=== PATIENT | female | born 1955 | race Caucasian/White ===

== ENCOUNTER → 2018-08-23 12:28 | Outpatient (CLI) | payer MEDICARE, SELFPAY ==
--- NOTE | 2018-08-23 12:37 | US_ITS ---
US breast LT complete MM Dig mamm DX unilat LT CAD Left breast ultrasound INDICATION: Palpable nodule left breast ORDERING PHYSICIAN: James Castro PATIENT AGE: 63 years COMPARISON: None The previous exams have been sent for but were not yet available for comparison TECHNIQUE: Standard images of the left breast along with spot compression views and left breast ultrasound FINDINGS: There is average fibroglandular tissue. In the region of the palpable abnormality there is a small area of increased density with a central lucency. Central lucency measures approximately 3 mm. No other significant anomalies are evident. Left breast ultrasound: There is a 1.6 x 0.7 x 1.6 cm area of subcutaneous slight increase echogenicity in the 12:00 region of the left breast. This contains a central area of sonolucency which measures 4 mm. This has benign features and may represent a lipoma with cystic degeneration centrally IMPRESSION: Palpable abnormality of the left breast is represented by an area of slight increased echogenicity with central sonolucency and may represent a lipoma with central cystic degeneration. Hamartoma is also a consideration. Probably benign. BI-RADS Category: 3 Probably Benign Finding Short Term Follow-up Recommendations: 1. Obtain old mammograms for comparison. An addendum may be a issued once the old films are available 2. 6 month mammographic and sonographic follow-up. 3. If the lesion increases in size then, ultrasound-guided biopsy could be performed (A letter has been sent to the patient regarding results of the study.)
--- NOTE | 2018-08-23 13:35 | MM_ITS ---
MM Dig mamm DX unilat LT CAD Left breast ultrasound INDICATION: Palpable nodule left breast ORDERING PHYSICIAN: James Castro PATIENT AGE: 63 years COMPARISON: None The previous exams have been sent for but were not yet available for comparison TECHNIQUE: Standard images of the left breast along with spot compression views and left breast ultrasound FINDINGS: There is average fibroglandular tissue. In the region of the palpable abnormality there is a small area of increased density with a central lucency. Central lucency measures approximately 3 mm. No other significant anomalies are evident. Left breast ultrasound: There is a 1.6 x 0.7 x 1.6 cm area of subcutaneous slight increase echogenicity in the 12:00 region of the left breast. This contains a central area of sonolucent C which measures 4 mm. This has benign features and may represent a lipoma with cystic degeneration centrally IMPRESSION: Palpable abnormality of the left breast is represented by an area of slight increased echogenicity with central sonolucent C and may represent a lipoma with central cystic degeneration. Probably benign. BI-RADS Category: 3 Probably Benign Finding Short Term Follow-up Recommendations: 1. Obtain old mammograms for comparison. An addendum may be a issued once the old films are available 2. 6 month mammographic and sonographic follow-up. 3. If the lesion increases in size than, ultrasound-guided biopsy could be performed (A letter has been sent to the patient regarding results of the study.)
== END ==
PROVIDERS: PCP Internal Medicine; Visit Provider Internal Medicine
DX: N63.20 Unspecified lump in the left breast, unspecified quadrant (principal); D24.2 Benign neoplasm of left breast
CPT/HCPCS: 76641; 77065

== ENCOUNTER → 2019-04-10 12:43 | Outpatient (CLI) | payer MEDICARE, SELFPAY ==
--- NOTE | 2019-04-10 12:43 | US_ITS ---
PROCEDURE: MM DIG MAMM BI DX W/CAD CLINICAL INDICATION: ARIE mamm--6 mo fu COMPARISON: MY Digital Screen BILAT from 04/06/2016 MY Digital Screen BILAT from 04/06/2017 MY Digital Screen BILAT from 04/07/2018 DIG MAMM-DX UNI-LT from 08/23/2018 BREASTLT US breast LT complete from 08/23/2018 US BREAST LT COMPLETE from 04/10/2019 TECHNIQUE: Standard CC and MLO images and 3D Tomosynthesis was obtained. R2 CAD reviewed. FINDINGS: Mostly fatty replaced fibroglandular tissue. There is some parenchymal distortion in the upper outer right breast from previous biopsy with some benign-appearing calcification at this region. Surgical clips are present in the right axilla. No malignant appearing mass or malignant-appearing microcalcification is evident. Left breast ultrasound: Previously noted complex nodule 12 o'clock no longer apparent. No cystic or solid lesion demonstrated IMPRESSION: BI-RAD Category: 2 Benign Finding(s) FOLLOW-UP: 1YR 1 Year Follow-up (A letter has been sent to the patient regarding results of the study.) Dictated by: Manohar Petit MD 04/18/2019 08:36 Electronically signed by Manohar Petit MD in [place] 04/18/2019 08:36
== END ==
PROVIDERS: PCP Internal Medicine; Visit Provider Surgery
DX: N60.02 Solitary cyst of left breast (principal)
CPT/HCPCS: 76641; 77062; 77066; G0279

== ENCOUNTER → 2020-04-12 08:44 | Outpatient (CLI) | payer MEDICARE, SELFPAY ==
--- NOTE | 2020-04-12 08:49 | MM_ITS ---
PROCEDURE: MM DIG SCREENING MAMM BI W/CAD Digital Breast Tomosynthesis Included CLINICAL INDICATION: SCREENING There is a history of breast cancer in the patient's maternal and paternal cousins. There has been a previous lumpectomy right breast for malignancy with follow-up chemotherapy 1998. COMPARISON: MG MY Digital Screen BILAT from 04/07/2018 MG DIG MAMM-DX UNI-LT from 08/23/2018 MG MM DIG MAMM BI DX W/CAD from 04/10/2019 TECHNIQUE: Standard CC and MLO images and 3D Tomosynthesis was obtained. R2 CAD reviewed. FINDINGS: The breasts are composed primarily of fat with minimal scattered fibroglandular densities in each breast. There is minimal postlumpectomy scarring near the axillary tail right breast. There are couple of surgical clips right axilla. There is a mole marker right breast. There is a benign-appearing calcification left breast. There is no new or suspicious lesion in either breast and no suspicious microcalcifications. IMPRESSION: Fatty type breast parenchyma with no suspicious lesions seen BI-RAD Category: 2 Benign Finding(s) FOLLOW-UP: 1YR 1 Year Follow-up (A letter has been sent to the patient regarding results of the study.) Dictated by: Dr. Sharad Salas MD 04/15/2020 11:38 Dr. Sharad Salas MD in [place] 04/15/2020 11:38
== END ==
PROVIDERS: PCP Internal Medicine; Visit Provider Surgery
DX: Z12.31 Encounter for screening mammogram for malignant neoplasm of breast (principal)
CPT/HCPCS: 77063; 77067

== ENCOUNTER 2020-07-24 13:49 | Inpatient (IN) | payer MEDICARE, SELFPAY ==
[2020-07-24] VITALS (12 sets, daily range): BP systolic 101–126; BP diastolic 44–71; PULSE 81–108; RESP 18–22; TEMP 36.9–38.1; O2SAT 86–95; BMI 37.6; BMI 33.3; BMI 32.2
--- NOTE | 2020-07-24 14:15 | PC.NURSE ---
PATIENT SENT TO ER PER El DURAN APRN. REPORT GIVEN TO Dhiraj CARTER RN
[2020-07-24 14:23] LABS: UTC Influenza A Antigen Negative (Negative); UTC Influenza B Antigen Negative (Negative)
--- NOTE | 2020-07-24 14:36 | XR_ITS ---
PROCEDURE: XR CHEST 2V CLINICAL HISTORY: cough Cough and fever with generalized weakness COMPARISON: No exams were available for comparison FINDINGS: The cardiomediastinal silhouette and pulmonary vascularity are within normal limits. There are low lung volumes. Patchy density is present in the left lower lobe and right middle lobe consistent with bilateral pneumonia. Patchy infiltrate is also suspected in the left upper lobe. No obvious effusion. Surgical clips are present in the right axilla. There is mild midthoracic curvature convex right. IMPRESSION: Bilateral pneumonia Dictated by: Manohar Petit MD 07/24/2020 14:58 Manohar Petit MD in [place] 07/24/2020 14:58
--- NOTE | 2020-07-24 14:44 | HMH.EDGENADL ---
ED Disposition Clinical Impression: Pneumonia due to COVID-19 virus Respiratory failure with hypoxia Qualifiers: Chronicity: acute Qualified Code(s): J96.01 - Acute respiratory failure with hypoxia Disposition: Admitted As Inpatient Condition on Discharge: Fair Referrals: James Castro [Primary Care Provider] - - Critical Care Critical Care Time: No Attestation: On 07/24/20, the high probability of a clinically significant, sudden or life threatening deterioration of the following system(s) required my full and direct attention, intervention and personal management. The time I documented below is in addition to time spent performing reported procedures but includes the following listed in this critical care notation. Medical Decision Making - Casimiro Inquiry Pt receiving controlled substance: No Vital Signs: 07/24/20 13:50 07/24/20 14:25 07/24/20 14:26 Temperature 100.6 F H 100.5 F H Temperature Source Oral Oral Pulse Rate [Right Brachial] 108 H 95 H Respiratory Rate 22 18 Blood Pressure [Right Arm] 103/61 L 110/44 L Blood Pressure Mean [Right Arm] 75 66 Blood Pressure Source [Right Arm] Automatic Cuff Automatic Cuff Blood Pressure Position [Right Arm] Sitting Sitting 02 Sat by Pulse Oximetry 86 L 88 L 91 L Oxygen Delivery Method Room Air Room Air Nasal Cannula Oxygen Flow Rate (LPM) 5 07/24/20 15:24 07/24/20 15:30 07/24/20 16:26 Temperature Temperature Source Pulse Rate [Right Brachial] 95 H 100 H 94 H Respiratory Rate 18 18 18 Blood Pressure [Right Arm] 120/61 106/52 L 101/61 L Blood Pressure Mean [Right Arm] 80 70 74 Blood Pressure Source [Right Arm] Blood Pressure Position [Right Arm] 02 Sat by Pulse Oximetry 94 L 91 L 92 L Oxygen Delivery Method Oxygen Flow Rate (LPM) - Lab Data Lab Results 07/24/20 14:05: Influenza Type A Ag Negative, Influenza Type B Ag Negative 07/24/20 14:33: WBC 9.9, RBC 4.32, Hgb 13.1, Hct 39.1, MCV 90.4, MCH 30.3, MCHC 33.5, RDW 12.4, Plt Count 299, MPV 7.2 L, Neut % (Auto) 86.4 H, Lymph % (Auto) 9.7 L, [place] % (Auto) 3.7, Eos % (Auto) 0.1, Baso % (Auto) 0.2, Neut # (Auto) 8.6 H, Lymph # (Auto) 1.0, [place] # (Auto) 0.4, Eos # (Auto) 0.0, Baso # (Auto) 0.0, Total Counted 100, Neutrophils % (Manual) 91 H, Lymphocytes % (Manual) 9 L, Platelet Estimate Normal, RBC Morphology Normal 07/24/20 14:33: Sodium 138, Potassium 4.3, Chloride 103, Carbon Dioxide 24, Anion Gap 15.3 H, BUN 28 H, Creatinine 1.20 H, Estimated Creat Clear 65, Estimated GFR 45 L, Est GFR ( Amer) 54 L, Glucose 117 H, Calcium 9.1, Total Bilirubin 0.6, AST 38 H, ALT 21, Alkaline Phosphatase 87, Troponin I < 0.01, Total Protein 8.3 H, Albumin 4.3, Globulin 4.0 H, Albumin/Globulin Ratio 1.1 07/24/20 14:33: Lactate 1.0 07/24/20 18:05: Troponin I < 0.01 Result diagrams: 07/24/20 14:33 07/24/20 14:33 Orders (Tests/Meds): ED MEDICATIONS Generic Name Dose Route Start Last Admin Trade Name Freq PRN Reason Stop Dose Admin Ceftriaxone Sodium 1 gm/ 50 mls @ 100 mls/hr 07/24/20 15:30 07/24/20 15:45 Sodium Chloride IV 08/07/20 15:29 100 mls/hr Q24H ELLIE Administration Protocol Azithromycin 500 mg/ Sodium 250 mls @ 250 mls/hr 07/24/20 15:30 07/24/20 15:45 Chloride IV 08/07/20 15:29 250 mls/hr Q24H ELLIE Administration Protocol Discontinued Medications Generic Name Dose Route Start Last Admin Trade Name Freq PRN Reason Stop Dose Admin Albuterol Sulfate 2 puffs 07/24/20 14:38 07/24/20 14:40 Albuterol-Hfa 90mcg/Puff Inhaler 8gm IH 07/24/20 14:39 2 puffs ONCE ONE Administration Miscellaneous 1 unit 07/24/20 14:37 07/24/20 15:38 Aerochamber/Optihaler MC 07/24/20 14:38 Not Given ONCE ONE ORDERS Category Date Time Status Troponin I Q3H Lab 07/24/20 20:45 Ordered Blood Culture Stat Micro 07/24/20 14:33 Received - Radiology Data #1 Image(s): Chest Image Reviewed: Yes I reviewed the patient's radiology imag
[2020-07-24 14:51] LABS: Basophils % 0.2 % (0.1-2.0); Eosinophils % 0.1 % (0.1-12.0); Hematocrit 39.1 % (37.0-47.0); Hemoglobin 13.1 g/dL (12.2-16.2); Lymphocytes % 9.7 % (10-50); Mean Corpuscular HGB Conc 33.5 g/dL (31.8-35.4); Mean Corpuscular Hemoglobin 30.3 pg (27.0-31.2); Mean Corpuscular Volume 90.4 fl (81-99); Mean Platelet Volume 7.2 fl (7.4-10.4); Monocytes # 0.4 K/mm3 (0.1-1.0); Monocytes % 3.7 % (1.7-9.3); Neutrophils # 8.6 K/mm3 (1.8-7.8); Neutrophils % 86.4 % (37.0-80.0); Platelet Count 299 K/mm3 (142-424); Red Blood Count 4.32 M/mm3 (4.20-5.40); Red Cell Distribution Width 12.4 % (11.5-17.5); White Blood Count 9.9 K/mm3 (4.8-10.8)
[2020-07-24 14:53] LABS: MANUAL DIFFERENTIAL MANUAL DIFFERENTIAL (MANUAL DIFF)
[2020-07-24 14:57] LABS: Chloride 103 mmol/L (98-107); Sodium 138 mmol/L (136-145)
[2020-07-24 14:58] LABS: Potassium 4.3 mmoL/L (3.5-5.1)
[2020-07-24 15:00] LABS: Alanine Aminotransferase 21 U/L (12-78); Alkaline Phosphatase 87 U/L (38-126); Aspartate Amino Transferase 38 U/L (14-36); Bilirubin,Total 0.6 mg/dl (0.2-1.3); Blood Urea Nitrogen 28 mg/dl (7-17); Creatinine Clearance Estimated 65 mL/min (50-200); Estimated Glomerular Filt Rate 45 ml/min (>60); GFR (African American) 54 ML/MIN (>60)
[2020-07-24 15:01] LABS: Albumin Level 4.3 g/dl (3.5-5.0); Albumin/Globulin Ratio 1.1 (1.1-1.8); Anion Gap 15.3 mEq/L (5-15); Calcium 9.1 mg/dl (8.4-10.2); Carbon Dioxide 24 mmol/L (22.0-30.0); Glucose 117 mg/dl (74-100); Total Protein,Serum 8.3 g/dl (6.3-8.2)
[2020-07-24 15:11] LABS: Lymphocytes % 9 % (10-50); Neutrophils % 91 % (42-76); RBC Morphology Normal; Total Cells Counted 100
[2020-07-24 15:12] LABS: Platelet Estimate Normal
[2020-07-24 15:14] LABS: Troponin I < 0.01 ng/ml (0.00-0.034)
--- NOTE | 2020-07-24 15:20 | ECG_ITS ---
APPROVED REPORT Exam: Resting ECG HR:95 bpm ECG Measurements Heart Rate 95 AXES DE 148 P 7 QRSd 82 QRS -15 QT 346 T 46 QTc 434 Conclusion Normal sinus rhythm Inferior and anterior changes are old findings Abnormal ECG Electronically signed by : Davi Guzman, 07/27/2020 11:05:11
--- NOTE | 2020-07-24 17:30 | PC.NURSE ---
Addendum entered by Chantelle Tolentino RN 07/24/20 18:21: They are putting the swab on the run now. MD aware Original Note: CAlled to check on the status of pt covid results due to this will let the MD know where to go for admission. Per lab pt covid swab had not been put on the machine to run at this time.
[2020-07-24 19:00] LABS: Troponin I < 0.01 ng/ml (0.00-0.034)
--- NOTE | 2020-07-24 19:53 | PC.NURSE ---
Dr. Venegas s/w Dr. Pang
--- NOTE | 2020-07-24 19:53 | PC.NURSE ---
MD Theo speaking with MD Bird at this time
--- NOTE | 2020-07-24 19:54 | PC.NURSE ---
lab called giving covid test results-positive. RN notified.
[2020-07-24 20:17] LABS: Adenovirus,PCR Not Detected (NotDetected); Bordetella Pertussis Not Detected (NotDetected); Chlamydophila Pneumoniae, PCR Not Detected (NotDetected); Coronavirus 19, PCR Not Detected (NotDetected); Coronavirus 229E Not Detected (NotDetected); Coronavirus NL63 Not Detected (NotDetected); Coronavirus OC43 Not Detected (NotDetected); Coronovirus HKU1,PCR Not Detected (NotDetected); Human Metapneumovirus Not Detected (NotDetected); Influenza A, PCR Not Detected (NotDetected); Influenza AH1, 2009 Not Detected (NotDetected); Influenza AH1, PCR Not Detected (NotDetected); Influenza AH3,PCR Not Detected (NotDetected); Influenza B, PCR Not Detected (NotDetected); Mycoplasma Pneumoniae, PCR Not Detected (NotDetected); Parainfluenza 1, PCR Not Detected (NotDetected); Parainfluenza 2, PCR Not Detected (NotDetected); Parainfluenza 3, PCR Not Detected (NotDetected); Parainfluenza 4, PCR Not Detected (NotDetected); Respiratory Syncytial Virus Not Detected (NotDetected); Rhinovirus/Enterovirus Not Detected (NotDetected)
[2020-07-24 20:56] LABS: Coronavirus 19 IgG Antibody Positive (Negative); Coronavirus 19 IgM Antibody Negative (Negative)
[2020-07-24 21:03] LABS: Troponin I < 0.01 ng/ml (0.00-0.034)
--- NOTE | 2020-07-24 21:16 | PC.NURSE ---
PT ARRIVED TO FLOOR VIA W/C FROM ED W/STAFF AT 2116
--- NOTE | 2020-07-24 22:01 | HMH.ACPN2 ---
Internal Medicine - PN: Subj *Date: 07/24/20 *Time: 22:01 Interval history: 65 y.o. female admitted with pneumonia. She had COVID 19 Vaccine by [facility] one month ago. In the ER her rapid PCR was positive. I requested a PCR respiratory panel plus an IgG/IgM. THE PCR FOR CORONAVIRUS/SARS 2 IS NEGATIVE and THE IgM IS NEGATIVE INDICATING NO ACUTE INFECTION AND THE IgG IS POSITIVE INDICATING IMMUNITY TO COVID 19 (conferred by vaccine). She has been continued on antibiotics. Remdesevir is NOT INDICATED. Nor is COVID protocol. Exam Vital signs and Labs for Last 24 Hours: Temp Pulse Resp BP Pulse Ox 98.5 F 88 22 126/71 94 L 07/24/20 21:07 07/24/20 21:07 07/24/20 21:07 07/24/20 21:07 07/24/20 20:30 Laboratory Results - last 24 hr 07/24/20 14:05: Influenza Type A Ag Negative, Influenza Type B Ag Negative 07/24/20 14:33: WBC 9.9, RBC 4.32, Hgb 13.1, Hct 39.1, MCV 90.4, MCH 30.3, MCHC 33.5, RDW 12.4, Plt Count 299, MPV 7.2 L, Neut % (Auto) 86.4 H, Lymph % (Auto) 9.7 L, [place] % (Auto) 3.7, Eos % (Auto) 0.1, Baso % (Auto) 0.2, Neut # (Auto) 8.6 H, Lymph # (Auto) 1.0, [place] # (Auto) 0.4, Eos # (Auto) 0.0, Baso # (Auto) 0.0, Total Counted 100, Neutrophils % (Manual) 91 H, Lymphocytes % (Manual) 9 L, Platelet Estimate Normal, RBC Morphology Normal 07/24/20 14:33: Sodium 138, Potassium 4.3, Chloride 103, Carbon Dioxide 24, Anion Gap 15.3 H, BUN 28 H, Creatinine 1.20 H, Estimated Creat Clear 65, Estimated GFR 45 L, Est GFR ( Amer) 54 L, Glucose 117 H, Calcium 9.1, Total Bilirubin 0.6, AST 38 H, ALT 21, Alkaline Phosphatase 87, Troponin I < 0.01, Total Protein 8.3 H, Albumin 4.3, Globulin 4.0 H, Albumin/Globulin Ratio 1.1 07/24/20 14:33: Lactate 1.0 07/24/20 14:33: SARS-CoV-2 IgG Ab (Rapid) Positive A, SARS-CoV-2 IgM Ab (Rapid) Negative 07/24/20 18:05: Troponin I < 0.01 07/24/20 20:13: Chlamy pneumoniae PCR Not detected, Adenovirus (PCR) Not detected, B. pertussis DNA (PCR) Not detected, Coronavirus OC43 (PCR) Not detected, Coronavirus HKU1 (PCR) Not detected, Coronavirus 229E (PCR) Not detected, SARS-CoV-2 (PCR) Not detected, Coronavirus NL63 (PCR) Not detected, Human Metapneumovir PCR Not detected, Influenza A (H1) PCR Not detected, Influ A (H1N1/09) PCR Not detected, Influenza A (H3) PCR Not detected, Influenza Type A (PCR) Not detected, Influenza Type B (PCR) Not detected, M. pneumoniae (PCR) Not detected, Parainfluenza 1 (PCR) Not detected, Parainfluenza 2 (PCR) Not detected, Parainfluenza 3 (PCR) Not detected, Parainfluenza 4 (PCR) Not detected, RSV (PCR) Not detected, Entero/Rhino (PCR) Not detected 07/24/20 20:15: Troponin I < 0.01 I & O for Last 24 hours: Intake & Output 07/22/20 07/23/20 07/24/20 07/25/20 11:59 11:59 11:59 11:59 Intake Total 300 / 300 Balance 300 / 300 Weight 200 lb Microbiology Reports for the Last 24 Hours: Microbiology 07/24/20 14:10 Nasopharyngeal Coronavirus COVID-19 PCR - Final Assessment and Plan (1) Pneumonia Status: Acute Qualifiers: Pneumonia type: due to unspecified organism Category: Medical Code(s): J18.9 - Pneumonia, unspecified organism (2) Respiratory failure with hypoxia Status: Acute Qualifiers: Chronicity: acute Qualified Code(s): J96.01 - Acute respiratory failure with hypoxia Category: Medical Code(s): J96.91 - Respiratory failure, unspecified with hypoxia
[2020-07-25] VITALS (7 sets, daily range): BP systolic 112–134; BP diastolic 59–76; PULSE 78–86; RESP 18–19; TEMP 36.4–37.1; O2SAT 90–94; BMI 32.2
--- NOTE | 2020-07-25 07:31 | HMH.PHAVTE ---
[facility] Pharmacy VTE Monitoring - Patient Demographics Admission date: 07/25/20 Report Date: 07/25/20 Time: 07:31 Allergies/Adverse Reactions: Patient Allergies codeine Allergy (Severe, Verified 07/24/20 14:21) S-DIFF. BREATHING/HIVES hydrocodone Allergy (Severe, Verified 07/24/20 14:21) S-DIFF. BREATHING/HIVES aspirin Adverse Reaction (Unknown, Verified 07/24/20 14:21) STOMACH UPSET/NOSE BLEEDS NSAIDS (Non-Steroidal Anti-Inflamma Adverse Reaction (Unknown, Verified 07/24/20 14:21) STOMACH UPSET/NOSE BLEEDS olmesartan Adverse Reaction (Unknown, Verified 07/24/20 14:21) MUSCLE CRAMPS/NIGHTMARES Height: 1.65 m Weight: 87.685 kg Patient Problems: Current Active Problems Pneumonia due to COVID-19 virus (Acute) Respiratory failure with hypoxia (Acute) Pneumonia (Acute) - VTE Risk Labs: VTE Related Lab Results Hgb 13.1 g/dL (12.2-16.2) 07/24/20 14:33 Hct 39.1 % (37.0-47.0) 07/24/20 14:33 Plt Count 299 K/mm3 (142-424) 07/24/20 14:33 BUN 28 mg/dl (7-17) H 07/24/20 14:33 Creatinine 1.20 mg/dl (0.52-1.04) H 07/24/20 14:33 Estimated Creat Clear 65 mL/min (50-200) 07/24/20 14:33 Was VTE Risk Assessment Performed: Yes VTE Score: 3 VTE Risk Level: Low Risk Clinical Trial Participant: No - Prophylaxis VTE Prophylaxis Ordered?: Yes Types of VTE Prophylaxis: TEDS Knee High, Pharmacological Pharmacologic Type: Enoxaparin
--- NOTE | 2020-07-25 07:34 | HMH.PHAINT ---
home medication list verified using list from [facility]
--- NOTE | 2020-07-25 08:52 | HMH.HP ---
*Admission Date: 07/25/20 *Chief complaint: hypoxia, cough, body aches, fever *History of present illness: Ms. Messer is a 65-year-old female who began feeling poorly last Wednesday. She states she developed a fever and a cough. By Wednesday she had lost her sense of taste and smell. She then began having nausea, vomiting, and diarrhea. She began getting short of breath and having some chest pain. She checked her oxygen at home and it began decreasing. It got as low as 64% and she therefore presented to urgent care for testing for Covid as she believed she had all of the symptoms of Covid. She had no known exposure to COVID-19 and had been vaccinated with a [employer] vaccine 1 month ago. She is a former smoker and says she has a touch of asthma. She has never had pneumonia in the past and did get a pneumonia vaccine. She does have a prior history of breast cancer, stomach cancer, and vulvar cancer. She has no active cancer at this time. She was evaluated in urgent care and her oxygen was 86%, therefore she was sent to the emergency room. She had a chest x-ray which showed bilateral pneumonia. Her initial nasal PCR was positive for Covid. She had a repeat upper respiratory panel with Covid PCR along with Covid antibodies. Her repeat upper respiratory panel was negative for Covid. Her IgG was positive and her IgM was negative. She was admitted and started on Zithromax and Rocephin along with some steroids. [facility] History I have reviewed the patient's past medical history: Yes Medical History: Reports:: Cancer, Gall Bladder Disease, Gastroesophageal Reflux Disease(GERD), Hyperlipidemia, Hypertension Denies:: Diabetes Mellitus Type 1, Diabetes Mellitus Type 2 *Have you ever received a pneumonia vaccine?: No *Have you received a flu vaccine this season?: Yes Other Medical History: Reports: Chemotherapy (1979,1998) Laterality Cases: Right: Lumpectomy Other Surgeries: Yes: Cancer Surgery, Cholecystectomy, Colonoscopy, Other - *Social History Last grade of school completed: 11th or 12th Smoking Status: Never smoker Alcohol Intake: never *Occupational Status:: retired Household Members: significant other, family *Travel in the last 8 weeks: None Family Hx:: Non-contributory Review of Systems - Constitutional Reports body ache(s), Reports chills, Reports fever(s), Reports malaise, Reports weakness - Eyes Denies blurry vision, Denies double vision - ENT Reports nasal congestion, Denies sore throat - *Cardiovascular Reports chest pain, Reports shortness of breath - *Respiratory Reports chest congestion, Reports cough, Reports shortness of breath - *Gastrointestinal Reports abdominal pain, Reports loose stools, Reports nausea, Reports vomiting - *Genitourinary Denies difficulty urinating, Denies painful urination - *Musculoskeletal Reports body aches, Denies joint pain - *Neurologic Reports weakness, Denies headache(s), Denies dizziness Meds Home Medications Medication Instructions Recorded Confirmed Type Atorvastatin Calcium [Lipitor 40mg 40 mg PO HS 07/24/20 07/24/20 History Tab] Fluticasone Propionate 1 spray IN BID 07/24/20 07/25/20 History Gabapentin [Neurontin 300mg 300 mg PO QID 07/24/20 07/24/20 History capsule] Omeprazole [Omeprazole 40mg 40 mg PO DAILY 07/24/20 07/24/20 History Capsule] lisinopriL [Lisinopril] 40 mg PO DAILY 07/24/20 07/24/20 History Allergies Allergy/AdvReac Type Severity Reaction Status Date / Time codeine Allergy Severe S-DIFF. Verified 07/24/20 14:21 BREATHING/HIVES hydrocodone Allergy Severe S-DIFF. Verified 07/24/20 14:21 BREATHING/HIVES aspirin AdvReac Unknown STOMACH Verified 07/24/20 14:21 UPSET/NOSE BLEEDS NSAIDS (Non-Steroidal AdvReac Unknown STOMACH Verified 07/24/20 14:21 Anti-Inflamma UPSET/NOSE BLEEDS olmesartan AdvReac Unknown MUSCLE Verified 07/24/20 14:21 CRAMPS/NIGHTMARES Exam Lisa
--- NOTE | 2020-07-25 10:02 | PC.NURSE ---
Per Lana Wooten order for pulmonology consult needs to be entered.
--- NOTE | 2020-07-25 10:14 | HMH.PULMCON ---
*Admission Date: 07/25/20 *Reason for consult:: Acute hypoxic respiratory failure, COVID-19 pneumonia *History of present illness: Ms. Messer is a 65-year-old female with past medical [id number] smoking history, currently not using any inhalers, denies any prior respiratory complaints no medical history of allergies and sinus issues was presented to the hospital with worsening hypoxic respiratory failure and her initial Covid testing resulted positive. Her subsequent Covid testing resulted negative. Patient also admits to contact with his son that was recently diagnosed with acute bronchitis however never been tested for COVID-19. Patient denies any prior hospitalizations for respiratory issues. [facility] [place] History Medical History: Reports:: Cancer, Gall Bladder Disease, Gastroesophageal Reflux Disease(GERD), Hyperlipidemia, Hypertension Denies:: Diabetes Mellitus Type 1, Diabetes Mellitus Type 2 *Have you ever received a pneumonia vaccine?: No *Have you received a flu vaccine this season?: Yes Other Medical History: Reports: Chemotherapy (1979,1998) Laterality Cases: Right: Lumpectomy Other Surgeries: Yes: Cancer Surgery, Cholecystectomy, Colonoscopy, Other - *Social History Last grade of school completed: 11th or 12th Smoking Status: Never smoker Alcohol Intake: never *Occupational Status:: retired Household Members: significant other, family *Travel in the last 8 weeks: None Family Hx:: Non-contributory ROS - Cons Reports body ache(s), Reports fatigue - Card Reports shortness of breath with activity, Reports shortness of breath when lying down - Resp Respiratory: Reports chest congestion, Reports dyspnea on exertion, Reports excessive phlegm production, Reports cough with sputum production - GI Gastrointestingal: Reports: nausea Meds Home Medications Medication Instructions Recorded Confirmed Type Atorvastatin Calcium [Lipitor 40mg 40 mg PO HS 07/24/20 07/24/20 History Tab] Fluticasone Propionate 1 spray IN BID 07/24/20 07/25/20 History Gabapentin [Neurontin 300mg 300 mg PO QID 07/24/20 07/24/20 History capsule] Omeprazole [Omeprazole 40mg 40 mg PO DAILY 07/24/20 07/24/20 History Capsule] lisinopriL [Lisinopril] 40 mg PO DAILY 07/24/20 07/24/20 History Allergies Allergy/AdvReac Type Severity Reaction Status Date / Time codeine Allergy Severe S-DIFF. Verified 07/24/20 14:21 BREATHING/HIVES hydrocodone Allergy Severe S-DIFF. Verified 07/24/20 14:21 BREATHING/HIVES aspirin AdvReac Unknown STOMACH Verified 07/24/20 14:21 UPSET/NOSE BLEEDS NSAIDS (Non-Steroidal AdvReac Unknown STOMACH Verified 07/24/20 14:21 Anti-Inflamma UPSET/NOSE BLEEDS olmesartan AdvReac Unknown MUSCLE Verified 07/24/20 14:21 CRAMPS/NIGHTMARES Exam - Constitutional Constitutional:: Present: no acute distress, comfortable - HENMT Exam HENMT: Present: normocephalic - Eye Exam Eyes:: Present: normal appearance both eyes and related structures - Neck Exam Neck:: Present: normal visual inspection - Respiratory Exam Respiratory:: Present: able to speak in complete sentences, no respiratory distress, normal respiratory effort, crackles. Absent: wheezing - Cardiovascular Exam Cardiac:: Present: S1, S2 - Skin Exam Skin: Present: warm, no rash, dry - Neurological Exam Neurological: Present: alert, awake, normal cognition - Extremities Exam Extremities: Present: no cyanosis, no clubbing Internal Medicine - CN: Reslt - Labs CBC & Chem 7: 07/24/20 14:33 07/24/20 14:33 Labs: Short CBC 07/24/20 Range/Units 14:33 WBC 9.9 (4.8-10.8) K/mm3 Hgb 13.1 (12.2-16.2) g/dL Hct 39.1 (37.0-47.0) % Plt Count 299 (142-424) K/mm3 [facility] 07/24/20 14:33 Sodium 138 Potassium 4.3 Chloride 103 Carbon Dioxide 24 BUN 28 H Creatinine 1.20 H Glucose 117 H Calcium 9.1 Cardiac Enzymes 07/24/20 07/24/20 07/24/20 Range/Units 14:33 18:05 20
[2020-07-25 11:49] LABS: C-Reactive Protein 144.2 mg/L (0-4)
[2020-07-25 11:50] LABS: D-Dimer 0.86 ug/mL (0.0-0.5)
--- NOTE | 2020-07-25 12:23 | ECG_ITS ---
APPROVED REPORT Exam: Resting ECG HR:81 bpm ECG Measurements Heart Rate 81 AXES ID 142 P 15 QRSd 72 QRS -14 QT 384 T 26 QTc 446 Conclusion Normal sinus rhythm Low voltage QRS Isolated q in iii Late r wave progression Abnormal ECG Electronically signed by : Davi Guzman, 07/27/2020 10:58:52
--- NOTE | 2020-07-25 17:48 | PC.NURSE ---
PT IS RESTING IN BED. NO COMPLAINTS OF DISCOMFORT. PT HAS BEEN AMBULATING TO THE BATHROOM. TOLERATED SITTING UP IN THE CHAIR FOR SEVERAL HOURS THIS MORNING. O2 SATURATION 90% ON 3.5 L NC. EATING AND DRINKING FAIR. LUNG SOUNDS DIMINISHED WITH FINE CRACKLES (BILATERAL BASES). NON PRODUCTIVE COUGH. ABDOMEN SOFT/NON TENDER WITH ACTIVE BOWEL SOUNDS. SKIN C/D/I. WILL CONTINUE TO MONITOR.
[2020-07-26] VITALS (7 sets, daily range): BP systolic 123–146; BP diastolic 68–86; PULSE 72–92; RESP 16–18; TEMP 36.6–36.9; O2SAT 90–96; BMI 32.3
--- NOTE | 2020-07-26 05:04 | PC.NURSE ---
alert and oriented. 3.5LNC o2 sat remain above 90%. no complaints voiced. vss. call light in reach. will continue to monitor
[2020-07-26 07:07] LABS: Basophils % 0.2 % (0.1-2.0); Eosinophils % 0.1 % (0.1-12.0); Hematocrit 34.9 % (37.0-47.0); Hemoglobin 11.4 g/dL (12.2-16.2); Lymphocytes # 1.3 K/mm3 (0.7-4.5); Lymphocytes % 17.8 % (10-50); Mean Corpuscular HGB Conc 32.7 g/dL (31.8-35.4); Mean Corpuscular Hemoglobin 29.5 pg (27.0-31.2); Mean Corpuscular Volume 90.3 fl (81-99); Mean Platelet Volume 7.6 fl (7.4-10.4); Monocytes # 0.5 K/mm3 (0.1-1.0); Monocytes % 6.7 % (1.7-9.3); Neutrophils # 5.4 K/mm3 (1.8-7.8); Neutrophils % 75.2 % (37.0-80.0); Platelet Count 321 K/mm3 (142-424); Red Blood Count 3.86 M/mm3 (4.20-5.40); Red Cell Distribution Width 12.5 % (11.5-17.5); White Blood Count 7.1 K/mm3 (4.8-10.8)
[2020-07-26 07:30] LABS: Chloride 113 mmol/L (98-107); Potassium 4.4 mmoL/L (3.5-5.1); Sodium 141 mmol/L (136-145)
[2020-07-26 07:33] LABS: Alanine Aminotransferase 18 U/L (12-78); Albumin Level 3.1 g/dl (3.5-5.0); Albumin/Globulin Ratio 0.9 (1.1-1.8); Alkaline Phosphatase 64 U/L (38-126); Anion Gap 9.4 mEq/L (5-15); Aspartate Amino Transferase 30 U/L (14-36); Bilirubin,Total 0.3 mg/dl (0.2-1.3); Blood Urea Nitrogen 23 mg/dl (7-17); Carbon Dioxide 23 mmol/L (22.0-30.0); Creatinine Clearance Estimated 76 mL/min (50-200); Estimated Glomerular Filt Rate 72 ml/min (>60); GFR (African American) 87 ML/MIN (>60); Globulin 3.3 g/dL (1.3-3.2); Total Protein,Serum 6.4 g/dl (6.3-8.2)
[2020-07-26 07:34] LABS: Calcium 8.2 mg/dl (8.4-10.2); Glucose 121 mg/dl (74-100)
--- NOTE | 2020-07-26 11:24 | P.PN_ITS ---
Internal Medicine - PN: Subj *Date: 07/26/20 *Time: 11:24 Interval history: She is feeling better. She still has a deep cough but it seems to be loosening a bit. She is resting comfortably. She states that she does get up in a chair. Exam Vital signs and Labs for Last 24 Hours: Temp Pulse Resp BP Pulse Ox 97.9 F 89 16 137/86 96 07/26/20 08:00 07/26/20 08:00 07/26/20 08:00 07/26/20 08:00 07/26/20 08:00 Laboratory Results - last 24 hr 07/25/20 11:13: D-Dimer 0.86 H 07/25/20 11:13: C-Reactive Protein 144.2 H 07/26/20 06:40: WBC 7.1 D, RBC 3.86 L, Hgb 11.4 L, Hct 34.9 L, MCV 90.3, MCH 29.5, MCHC 32.7, RDW 12.5, Plt Count 321, MPV 7.6, Neut % (Auto) 75.2, Lymph % (Auto) 17.8, [place] % (Auto) 6.7, Eos % (Auto) 0.1, Baso % (Auto) 0.2, Neut # (Auto) 5.4, Lymph # (Auto) 1.3, [place] # (Auto) 0.5, Eos # (Auto) 0.0, Baso # (Auto) 0.0 07/26/20 06:40: Sodium 141, Potassium 4.4, Chloride 113 H, Carbon Dioxide 23, Anion Gap 9.4, BUN 23 H, Creatinine 0.80 D, Estimated Creat Clear 76, Estimated GFR 72, Est GFR ( Amer) 87 D, Glucose 121 H, Calcium 8.2 L, Total Bilirubin 0.3, AST 30, ALT 18, Alkaline Phosphatase 64, Total Protein 6.4, Albumin 3.1 L, Globulin 3.3 H, Albumin/Globulin Ratio 0.9 L I & O for Last 24 hours: Intake & Output 07/23/20 07/24/20 07/25/20 07/26/20 11:59 11:59 11:59 11:59 Intake Total 540 / 540 960 / 960 Balance 540 / 540 960 / 960 Weight 193 lb 5 oz 194 lb 0.108 oz Microbiology Reports for the Last 24 Hours: Microbiology 07/24/20 Unknown Sputum - Expectorated Sputum Gram Stain - Final 07/24/20 Unknown Sputum - Expectorated Sputum Sputum Culture - Preliminary - Constitutional no acute distress - *Routine HEENT Exam Eye: Present: PERRL ENT: Present: mucous membranes moist - *Routine Respiratory Exam Present: decreased breath sounds (But she is moving air better. She has some rhonchi more prominent on the right than the left.) - *Routine Cardiovascular Exam Present: RRR - *Routine Abdominal Exam Present: soft. Absent: tenderness - *Routine Extremities Exam Present: edema (Minimal) - *Routine Neurological Exam Present: alert, oriented X3 Assessment and Plan (1) Pneumonia Status: Acute Qualifiers: Pneumonia type: due to unspecified organism Category: Medical Code(s): J18.9 - Pneumonia, unspecified organism (2) Respiratory failure with hypoxia Status: Acute Qualifiers: Chronicity: acute Qualified Code(s): J96.01 - Acute respiratory failure with hypoxia Category: Medical Code(s): J96.91 - Respiratory failure, unspecified with hypoxia (3) Hypertension Status: Chronic Category: Medical Code(s): I10 - Essential (primary) hypertension (4) Hyperlipidemia Status: Chronic Category: Medical Code(s): E78.5 - Hyperlipidemia, unspecified (5) History of breast cancer Status: Chronic Category: Medical Code(s): Z85.3 - Personal history of malignant neoplasm of breast - Assessment and plan all Dx Assessment and Plan for all problems:: Continue present regimen. The case was discussed once again with Dr. Negron.
--- NOTE | 2020-07-26 12:47 | HMH.PULMPN ---
Internal Medicine - PN: Subj *Date: 07/26/20 *Time: 12:47 Interval history: No acute respiratory events overnight. Patient respiratory status remained stable. Exam - Constitutional Constitutional:: Present: no acute distress, comfortable - HENMT Exam HENMT: Present: normocephalic, atraumatic - Eye Exam Eyes:: Present: normal appearance both eyes and related structures - Neck Exam Neck:: Present: normal visual inspection - Respiratory Exam Respiratory:: Present: able to speak in complete sentences, no respiratory distress, crackles - Cardiovascular Exam Cardiac:: Present: S1, S2 - GI Exam GI:: Present: soft, no hepatosplenomegaly - Skin Exam Skin: Present: warm, no rash, dry, rash - Neurological Exam Neurological: Present: alert, awake, normal cognition - Extremities Exam Extremities: Present: no cyanosis, no clubbing, no edema Assessment and Plan (1) Pneumonia Status: Acute Qualifiers: Pneumonia type: due to unspecified organism Category: Medical Code(s): J18.9 - Pneumonia, unspecified organism (2) Respiratory failure with hypoxia Status: Acute Qualifiers: Chronicity: acute Qualified Code(s): J96.01 - Acute respiratory failure with hypoxia Category: Medical Code(s): J96.91 - Respiratory failure, unspecified with hypoxia (3) Hypertension Status: Chronic Category: Medical Code(s): I10 - Essential (primary) hypertension (4) Hyperlipidemia Status: Chronic Category: Medical Code(s): E78.5 - Hyperlipidemia, unspecified (5) History of breast cancer Status: Chronic Category: Medical Code(s): Z85.3 - Personal history of malignant neoplasm of breast - Assessment and plan all Dx Assessment and Plan for all problems:: #COVID-19 pneumonia: #Community-acquired pneumonia: 65-year-old prior smoker respiratory complaints, personal history of allergies and recurrent sinusitis presented to the hospital with worsening respiratory failure. Chest x-ray showed bilateral patchy infiltrates more on the left than on the right prominent upper lobe infiltrate. Patient also admits loss of taste and smell initially however he regained that now. Patient has possible recent sick contact, her son diagnosed with acute bronchitis but never tested for COVID-19 pneumonia. Patient's COVID-19 viral PCR initially resulted positive however subsequent comprehensive respiratory viral PCR tested negative for COVID-19. Rest of the viral panel negative. Patient received immunization with JJ vaccine a month ago and her IgG antibodies were positive with negative IgM. After extensive discussion with the patient and family, we have opted to treat her for COVID-19 pneumonia. Patient was initiated on remdesivir and dexamethasone along with continuation of her ceftriaxone azithromycin. Respiratory status remained stable since yesterday. She continued remained on nasal cannula and supplementation of 3 to 4 L. CRP elevated at 144.2 and D-dimer elevated at 0.86 Plan: - Continue oxygen supplementation via NC, wean as tolerated to maintain O2 saturation goal 90 to 92% - Continue remdesivir and continue dexamethasone for COVID-19 pneumonia. - Continue ceftriaxone & Azithromycin possible community-acquired pneumonia, prelim sputum staining moderate gram-positive cocci in pairs and intracellular gram-positive cocci in chains. Follow with final results. - F/U Blood cultures -Continue chemical DVT prophylaxis - Change duo nebs to Combivent every 6 hours as needed #Thank you for involving pulmonary in this patient care. We will continue to follow. Please call with any questions or concerns.
[2020-07-27] VITALS (8 sets, daily range): BP systolic 131–153; BP diastolic 67–84; PULSE 82–98; RESP 17–21; TEMP 36.5–36.9; O2SAT 90–96
--- NOTE | 2020-07-27 04:30 | PC.NURSE ---
Assessed patient's vitals at 0400 and SpO2 was found to be 88% on 4.5 L n/c. This was after patient had ambulated to the restroom. After waiting 5 minutes with the Oxygen indicator on patient, SpO2 registered the highest at 91% and the lowest at 87%. Called respiratory and she placed her on 5 L n/c with 90% SpO2 registered and respiratory will continue to monitor RT also stated that she would pass this along to the oncoming therapist. Respiratory gave patient inhaler to use while this RN was in the room. Will continue to monitor for any acute changes.
--- NOTE | 2020-07-27 04:58 | PC.NURSE ---
Reassessed of patient's SpO2--92% on 5 L. Will notify Respiratory.
--- NOTE | 2020-07-27 05:01 | PC.NURSE ---
Advised Respiratory Therapist of the SpO2 at 92% on 5 L. She stated that was satisfactory. Will continue to monitor for any acute changes.
[2020-07-27 06:30] LABS: Basophils % 0.2 % (0.1-2.0); Eosinophils % 0.2 % (0.1-12.0); Hematocrit 37.4 % (37.0-47.0); Hemoglobin 12.3 g/dL (12.2-16.2); Lymphocytes # 1.5 K/mm3 (0.7-4.5); Lymphocytes % 11.9 % (10-50); Mean Corpuscular HGB Conc 32.9 g/dL (31.8-35.4); Mean Corpuscular Hemoglobin 29.9 pg (27.0-31.2); Mean Corpuscular Volume 90.9 fl (81-99); Mean Platelet Volume 7.2 fl (7.4-10.4); Monocytes # 0.8 K/mm3 (0.1-1.0); Monocytes % 6.1 % (1.7-9.3); Neutrophils # 10.3 K/mm3 (1.8-7.8); Neutrophils % 81.6 % (37.0-80.0); Platelet Count 403 K/mm3 (142-424); Red Blood Count 4.11 M/mm3 (4.20-5.40); Red Cell Distribution Width 12.5 % (11.5-17.5); White Blood Count 12.7 K/mm3 (4.8-10.8)
--- NOTE | 2020-07-27 08:20 | XR_ITS ---
PROCEDURE INFORMATION: Exam: XR Chest Exam date and time: 07/27/2020 8:20 AM Age: 65 years old Clinical indication: Shortness of breath; Patient HX: Pneumonia, covid TECHNIQUE: Imaging protocol: XR of the chest. Views: 2 views. COMPARISON: CR XR CHEST 2V 07/24/2020 2:37 PM FINDINGS: Lungs: Diffuse consolidations throughout the bilateral lung lundberg, unchanged compared to the previous exam. Pleural spaces: Unremarkable. No pleural effusion. No pneumothorax. Heart/Mediastinum: Unremarkable. No cardiomegaly. Bones/joints: Unremarkable. There is no acute fracture present. IMPRESSION: Diffuse consolidations throughout the bilateral lung lundberg, unchanged compared to the previous exam.
[2020-07-27 08:28] LABS: Chloride 111 mmol/L (98-107); Sodium 143 mmol/L (136-145)
[2020-07-27 08:29] LABS: Potassium 4.3 mmoL/L (3.5-5.1)
[2020-07-27 08:31] LABS: Alanine Aminotransferase 20 U/L (12-78); Albumin Level 3.3 g/dl (3.5-5.0); Alkaline Phosphatase 70 U/L (38-126); Anion Gap 15.3 mEq/L (5-15); Aspartate Amino Transferase 27 U/L (14-36); Bilirubin,Total 0.4 mg/dl (0.2-1.3); Blood Urea Nitrogen 19 mg/dl (7-17); Carbon Dioxide 21 mmol/L (22.0-30.0); Creatinine Clearance Estimated 76 mL/min (50-200); Estimated Glomerular Filt Rate 72 ml/min (>60); GFR (African American) 87 ML/MIN (>60); Globulin 3.2 g/dL (1.3-3.2); Total Protein,Serum 6.5 g/dl (6.3-8.2)
[2020-07-27 08:32] LABS: Calcium 8.6 mg/dl (8.4-10.2); Glucose 94 mg/dl (74-100)
--- NOTE | 2020-07-27 08:54 | P.PN_ITS ---
Internal Medicine - PN: Subj *Date: 07/27/20 *Time: 08:54 Interval history: Patient has no new complaints this morning. She still has a productive cough and gets short of breath with movement. She slept a little bit better last night and was able to eat. She denies any pain. Exam Vital signs and Labs for Last 24 Hours: Temp Pulse Resp BP Pulse Ox 98.4 F 90 21 143/84 H 95 07/27/20 08:00 07/27/20 08:00 07/27/20 08:00 07/27/20 08:00 07/27/20 08:19 Laboratory Results - last 24 hr 07/27/20 06:15: WBC 12.7 H D, RBC 4.11 L, Hgb 12.3, Hct 37.4, MCV 90.9, MCH 29.9, MCHC 32.9, RDW 12.5, Plt Count 403 D, MPV 7.2 L, Neut % (Auto) 81.6 H, Lymph % (Auto) 11.9, [place] % (Auto) 6.1, Eos % (Auto) 0.2, Baso % (Auto) 0.2, Neut # (Auto) 10.3 H, Lymph # (Auto) 1.5, [place] # (Auto) 0.8, Eos # (Auto) 0.0, Baso # (Auto) 0.0 07/27/20 06:15: Sodium 143, Potassium 4.3, Chloride 111 H, Carbon Dioxide 21 L, Anion Gap 15.3 H, BUN 19 H, Creatinine 0.80, Estimated Creat Clear 76, Estimated GFR 72, Est GFR ( Amer) 87, Glucose 94 D, Calcium 8.6, Total Bilirubin 0.4, AST 27, ALT 20, Alkaline Phosphatase 70, Total Protein 6.5, Albumin 3.3 L, Globulin 3.2, Albumin/Globulin Ratio 1.0 L I & O for Last 24 hours: Intake & Output 07/24/20 07/25/20 07/26/20 07/27/20 11:59 11:59 11:59 11:59 Intake Total 540 / 540 960 / 960 2450 / 2450 Balance 540 / 540 960 / 960 2450 / 2450 Weight 193 lb 5 oz 194 lb 0.108 oz 194 lb 0.108 oz Microbiology Reports for the Last 24 Hours: Microbiology 07/24/20 Unknown Sputum - Expectorated Sputum Gram Stain - Final 07/24/20 Unknown Sputum - Expectorated Sputum Sputum Culture - Preliminary 07/24/20 14:33 Blood Blood Culture - Preliminary NO GROWTH AFTER 48 HOURS 07/24/20 14:33 Blood Blood Culture - Preliminary NO GROWTH AFTER 48 HOURS - Constitutional no acute distress - *Routine Respiratory Exam Present: decreased breath sounds, rhonchi (on the right) - *Routine Cardiovascular Exam Present: RRR - *Routine Abdominal Exam Present: soft, normoactive bowel sounds. Absent: tenderness - *Routine Extremities Exam Absent: cyanosis, clubbing, edema - *Routine Skin Exam Present: warm. Absent: rash - *Routine Neurological Exam Present: alert, oriented X3 Assessment and Plan (1) Pneumonia Status: Acute Qualifiers: Pneumonia type: due to unspecified organism Category: Medical Code(s): J18.9 - Pneumonia, unspecified organism (2) Respiratory failure with hypoxia Status: Acute Qualifiers: Chronicity: acute Qualified Code(s): J96.01 - Acute respiratory failure with hypoxia Category: Medical Code(s): J96.91 - Respiratory failure, unspecified with hypoxia (3) Hypertension Status: Chronic Category: Medical Code(s): I10 - Essential (primary) hypertension (4) Hyperlipidemia Status: Chronic Category: Medical Code(s): E78.5 - Hyperlipidemia, unspecified (5) History of breast cancer Status: Chronic Category: Medical Code(s): Z85.3 - Personal history of malignant neoplasm of breast - Assessment and plan all Dx Assessment and Plan for all problems:: We will continue current care. Awaiting culture results. Will discuss further care with Dr. Pang. Pulmonology to follow.
--- NOTE | 2020-07-27 17:46 | PC.NURSE ---
PT IS RESTING IN BED. NO COMPLAINTS OF DISCOMFORT. PT STATES SHE IS FEELING BETTER AND IS HOPING TO GET TO GO HOME ON WEDNESDAY. O2 HAS BEEN WEANED TO 2.5 L. O2 SATURATION HAS MAINTAINED 92-95% T/O THE AFTERNOON. PT TOLERATED TAKING A SHOWER THIS SHIFT WITH VERY MINIMAL ASSISTANCE. AMBULATES TO THE BATHROOM AND AROUND THE ROOM. PT STATES SHE DOES NOT FEEL SOA AND IS NOT IN ANY DISTRESS. EATING AND DRINKING WELL. LUNG SOUNDS CLEAR THIS AFTERNOON. ABDOMEN SOFT/NON TENDER WITH ACTIVE BOWEL SOUNDS. VSS. WILL CONTINUE TO MONITOR.
[2020-07-28] VITALS: BP 123/73; PULSE 77; RESP 20; TEMP 36.9; O2SAT 90
--- NOTE | 2020-07-28 03:58 | PC.NURSE ---
No acute changes overnight, pt has slept well through the night. Has remained on 2.5L NC. Lungs are diminished, sats are low 90s. Pt does not report any difficulty breathing. Bowel sounds x4, and soft and nontender. PT able to ambulate independently in room. VSS, call light in reach, no concerns at this time.
[2020-07-28 04:00] VITALS: BP 132/77; PULSE 74; RESP 18; TEMP 36.7; O2SAT 96
[2020-07-28 06:40] LABS: Basophils % 0.2 % (0.1-2.0); Eosinophils % 0.2 % (0.1-12.0); Hematocrit 30.7 % (37.0-47.0); Hemoglobin 10.5 g/dL (12.2-16.2); Lymphocytes # 1.6 K/mm3 (0.7-4.5); Lymphocytes % 18.8 % (10-50); Mean Corpuscular HGB Conc 34.2 g/dL (31.8-35.4); Mean Corpuscular Hemoglobin 30.6 pg (27.0-31.2); Mean Corpuscular Volume 89.6 fl (81-99); Mean Platelet Volume 7.7 fl (7.4-10.4); Monocytes # 0.7 K/mm3 (0.1-1.0); Monocytes % 8.8 % (1.7-9.3); Neutrophils % 71.9 % (37.0-80.0); Platelet Count 346 K/mm3 (142-424); Red Blood Count 3.42 M/mm3 (4.20-5.40); Red Cell Distribution Width 12.8 % (11.5-17.5); White Blood Count 8.3 K/mm3 (4.8-10.8)
[2020-07-28 06:54] LABS: Chloride 111 mmol/L (98-107); Potassium 4.2 mmoL/L (3.5-5.1); Sodium 139 mmol/L (136-145)
[2020-07-28 06:57] LABS: Alanine Aminotransferase 15 U/L (12-78); Albumin Level 2.7 g/dl (3.5-5.0); Alkaline Phosphatase 57 U/L (38-126); Anion Gap 9.2 mEq/L (5-15); Aspartate Amino Transferase 21 U/L (14-36); Bilirubin,Total 0.4 mg/dl (0.2-1.3); Blood Urea Nitrogen 14 mg/dl (7-17); Calcium 8.1 mg/dl (8.4-10.2); Carbon Dioxide 23 mmol/L (22.0-30.0); Creatinine Clearance Estimated 76 mL/min (50-200); Estimated Glomerular Filt Rate 83 ml/min (>60); GFR (African American) 101 ML/MIN (>60); Globulin 2.7 g/dL (1.3-3.2); Glucose 89 mg/dl (74-100); Total Protein,Serum 5.4 g/dl (6.3-8.2)
[2020-07-28 07:01] VITALS: BP 142/91; PULSE 82; RESP 17; TEMP 36.9; O2SAT 92
--- NOTE | 2020-07-28 10:47 | HMH.ACPN ---
Internal Medicine - PN: Subj *Date: 07/28/20 *Time: 10:47 Exam Vital signs and Labs for Last 24 Hours: Temp Pulse Resp BP Pulse Ox 98.5 F 82 17 142/91 H 92 L 07/28/20 07:01 07/28/20 07:01 07/28/20 07:01 07/28/20 07:01 07/28/20 07:01 Laboratory Results - last 24 hr 07/28/20 06:21: WBC 8.3 D, RBC 3.42 L, Hgb 10.5 L, Hct 30.7 L, MCV 89.6, MCH 30.6, MCHC 34.2, RDW 12.8, Plt Count 346, MPV 7.7, Neut % (Auto) 71.9, Lymph % (Auto) 18.8, [place] % (Auto) 8.8, Eos % (Auto) 0.2, Baso % (Auto) 0.2, Neut # (Auto) 6.0, Lymph # (Auto) 1.6, [place] # (Auto) 0.7, Eos # (Auto) 0.0, Baso # (Auto) 0.0 07/28/20 06:21: Sodium 139, Potassium 4.2, Chloride 111 H, Carbon Dioxide 23, Anion Gap 9.2, BUN 14 D, Creatinine 0.70, Estimated Creat Clear 76, Estimated GFR 83, Est GFR ( Amer) 101, Glucose 89, Calcium 8.1 L, Total Bilirubin 0.4, AST 21, ALT 15, Alkaline Phosphatase 57, Total Protein 5.4 L, Albumin 2.7 L D, Globulin 2.7, Albumin/Globulin Ratio 1.0 L I & O for Last 24 hours: Intake & Output 07/25/20 07/26/20 07/27/20 07/28/20 23:59 23:59 23:59 23:59 Intake Total 960 / 960 480 / 480 3050 / 3050 360 / 360 Balance 960 / 960 480 / 480 3050 / 3050 360 / 360 Weight 87.685 kg 88 kg Microbiology Reports for the Last 24 Hours: Microbiology 07/24/20 Unknown Sputum - Expectorated Sputum Gram Stain - Final 07/24/20 Unknown Sputum - Expectorated Sputum Sputum Culture - Final Normal Respiratory Kailee Assessment and Plan (1) Pneumonia Status: Acute Qualifiers: Pneumonia type: due to unspecified organism Category: Medical Code(s): J18.9 - Pneumonia, unspecified organism (2) Respiratory failure with hypoxia Status: Acute Qualifiers: Chronicity: acute Qualified Code(s): J96.01 - Acute respiratory failure with hypoxia Category: Medical Code(s): J96.91 - Respiratory failure, unspecified with hypoxia (3) Hypertension Status: Chronic Category: Medical Code(s): I10 - Essential (primary) hypertension (4) Hyperlipidemia Status: Chronic Category: Medical Code(s): E78.5 - Hyperlipidemia, unspecified (5) History of breast cancer Status: Chronic Category: Medical Code(s): Z85.3 - Personal history of malignant neoplasm of breast The patient's infection will respond to the chosen ABx?: Yes Is the patient receiving the right drug, dose, and route?: Yes Could a more targeted ABx be ordered?: No
[2020-07-28 11:02] VITALS: BP 138/80; PULSE 86; RESP 18; TEMP 37.3; O2SAT 92
[2020-07-28 15:16] VITALS: BP 149/77; PULSE 95; RESP 18; TEMP 37.1; O2SAT 91
--- NOTE | 2020-07-28 16:01 | PC.NURSE ---
PT IS SITTING UP IN THE CHAIR. ALERT AND ORIENTED X4. PT STATES SHE IS MORE THAN READY TO GO HOME TOMORROW. NO COMPLAINTS OF SOA. ROOM AIR SATURATION IS 91%. PT HAS BEEN ABLE TO TOLERATE AMBULATING TO THE BATHROOM. LUNG SOUNDS CLEAR. ABDOMEN SOFT/NON TENDER WITH ACTIVE BOWEL SOUNDS. VSS. EATING AND DRINKING WELL. PT HAS BEEN USING HER INCENTIVE SPIROMETER. WILL CONTINUE TO MONITOR.
[2020-07-28 20:00] VITALS: BP 135/95; PULSE 85; RESP 18; TEMP 36.7; O2SAT 90; O2SAT 92
[2020-07-29] VITALS: BP 127/72; PULSE 77; RESP 18; TEMP 36.9; O2SAT 91
[2020-07-29 03:43] VITALS: BP 124/75; PULSE 83; RESP 18; TEMP 36.8; O2SAT 91
--- NOTE | 2020-07-29 03:48 | PC.NURSE ---
pt slept well this shift, no acute changes. Room air stats >90%. Pt will ambulate to bathroom independently. Lung sounds are clear, abd is soft and nontender. VSS, pt can make needs known to staff. Admin meds per mar. Patient states she is ready to go home today. No concerns at this time.
[2020-07-29 05:00] VITALS: BMI 32.3
[2020-07-29 06:16] LABS: Basophils % 0.2 % (0.1-2.0); Eosinophils % 0.4 % (0.1-12.0); Hematocrit 33.4 % (37.0-47.0); Hemoglobin 11.4 g/dL (12.2-16.2); Lymphocytes # 1.3 K/mm3 (0.7-4.5); Lymphocytes % 16.6 % (10-50); Mean Corpuscular HGB Conc 34.2 g/dL (31.8-35.4); Mean Corpuscular Hemoglobin 30.4 pg (27.0-31.2); Mean Platelet Volume 7.7 fl (7.4-10.4); Monocytes # 0.6 K/mm3 (0.1-1.0); Monocytes % 7.5 % (1.7-9.3); Neutrophils # 6.1 K/mm3 (1.8-7.8); Neutrophils % 75.3 % (37.0-80.0); Platelet Count 426 K/mm3 (142-424); Red Blood Count 3.75 M/mm3 (4.20-5.40); Red Cell Distribution Width 12.8 % (11.5-17.5); White Blood Count 8.1 K/mm3 (4.8-10.8)
[2020-07-29 06:18] LABS: Chloride 109 mmol/L (98-107); Sodium 138 mmol/L (136-145)
[2020-07-29 06:20] LABS: Blood Urea Nitrogen 15 mg/dl (7-17); Creatinine Clearance Estimated 76 mL/min (50-200); Estimated Glomerular Filt Rate 83 ml/min (>60); GFR (African American) 101 ML/MIN (>60)
[2020-07-29 06:21] LABS: Alanine Aminotransferase 16 U/L (12-78); Albumin Level 3.1 g/dl (3.5-5.0); Albumin/Globulin Ratio 0.9 (1.1-1.8); Alkaline Phosphatase 63 U/L (38-126); Aspartate Amino Transferase 20 U/L (14-36); Bilirubin,Total 0.5 mg/dl (0.2-1.3); Calcium 8.6 mg/dl (8.4-10.2); Carbon Dioxide 24 mmol/L (22.0-30.0); Globulin 3.3 g/dL (1.3-3.2); Glucose 118 mg/dl (74-100); Total Protein,Serum 6.4 g/dl (6.3-8.2)
[2020-07-29 08:00] VITALS: BP 126/71; PULSE 93; RESP 20; TEMP 36.7; O2SAT 92
--- NOTE | 2020-07-29 08:45 | HMH.ACPN2 ---
Internal Medicine - PN: Subj *Date: 07/29/20 *Time: 08:45 Interval history: Is doing well. She would like to go home. She slept last night. She is eating and drinking without difficulty. She denies shortness of breath or chest pain.O2 sats are 91% on room air. Exam Vital signs and Labs for Last 24 Hours: Temp Pulse Resp BP Pulse Ox 98.3 F 83 18 124/75 91 L 07/29/20 03:43 07/29/20 03:43 07/29/20 03:43 07/29/20 03:43 07/29/20 03:43 Laboratory Results - last 24 hr 07/29/20 05:41: WBC 8.1, RBC 3.75 L, Hgb 11.4 L, Hct 33.4 L, MCV 89.0, MCH 30.4, MCHC 34.2, RDW 12.8, Plt Count 426 H, MPV 7.7, Neut % (Auto) 75.3, Lymph % (Auto) 16.6, [place] % (Auto) 7.5, Eos % (Auto) 0.4, Baso % (Auto) 0.2, Neut # (Auto) 6.1, Lymph # (Auto) 1.3, [place] # (Auto) 0.6, Eos # (Auto) 0.0, Baso # (Auto) 0.0 07/29/20 05:41: Sodium 138, Potassium 4.0, Chloride 109 H, Carbon Dioxide 24, Anion Gap 9.0, BUN 15, Creatinine 0.70, Estimated Creat Clear 76, Estimated GFR 83, Est GFR ( Amer) 101, Glucose 118 H D, Calcium 8.6, Total Bilirubin 0.5, AST 20, ALT 16, Alkaline Phosphatase 63, Total Protein 6.4, Albumin 3.1 L D, Globulin 3.3 H, Albumin/Globulin Ratio 0.9 L I & O for Last 24 hours: Intake & Output 07/26/20 07/27/20 07/28/20 07/29/20 11:59 11:59 11:59 11:59 Intake Total 960 / 960 2450 / 2450 1200 / 1200 960 / 960 Balance 960 / 960 2450 / 2450 1200 / 1200 960 / 960 Weight 194 lb 0.108 oz 194 lb 0.108 oz 194 lb 0.108 oz Microbiology Reports for the Last 24 Hours: Microbiology 07/24/20 Unknown Sputum - Expectorated Sputum Gram Stain - Final 07/24/20 Unknown Sputum - Expectorated Sputum Sputum Culture - Final Normal Respiratory Kailee - Constitutional no acute distress Comments: Sitting in chair at bedside. Appears comfortable. No dyspnea noted. - *Routine Respiratory Exam Present: crackles (Few crackles bibasilar) - *Routine Cardiovascular Exam Present: RRR - *Routine Abdominal Exam Present: soft, normoactive bowel sounds. Absent: tenderness - *Routine Extremities Exam Present: edema (Trace bilateral) - *Routine Skin Exam Present: dry, warm - *Routine Neurological Exam Present: alert, oriented X3 Assessment and Plan (1) Pneumonia Status: Acute Qualifiers: Pneumonia type: due to unspecified organism Category: Medical Code(s): J18.9 - Pneumonia, unspecified organism (2) Respiratory failure with hypoxia Status: Acute Qualifiers: Chronicity: acute Qualified Code(s): J96.01 - Acute respiratory failure with hypoxia Category: Medical Code(s): J96.91 - Respiratory failure, unspecified with hypoxia (3) Hypertension Status: Chronic Category: Medical Code(s): I10 - Essential (primary) hypertension (4) Hyperlipidemia Status: Chronic Category: Medical Code(s): E78.5 - Hyperlipidemia, unspecified (5) History of breast cancer Status: Chronic Category: Medical Code(s): Z85.3 - Personal history of malignant neoplasm of breast - Assessment and plan all Dx Assessment and Plan for all problems:: Patient is ready for discharge.
--- NOTE | 2020-07-29 09:51 | HMH.PULMPN ---
Internal Medicine - PN: Subj *Date: 07/29/20 *Time: 12:07 Interval history: No acute respiratory events, status improved over the weekend. Exam - Constitutional Constitutional:: Present: no acute distress - HENMT Exam HENMT: Present: normocephalic, atraumatic - Eye Exam Eyes:: Present: normal appearance both eyes and related structures - Neck Exam Neck:: Present: normal visual inspection - Respiratory Exam Respiratory:: Present: able to speak in complete sentences, no respiratory distress, crackles - Cardiovascular Exam Cardiac:: Present: S1, S2 - GI Exam GI:: Present: soft - Skin Exam Skin: Present: warm, no rash - Neurological Exam Neurological: Present: alert, awake, normal cognition Assessment and Plan (1) Pneumonia Status: Acute Qualifiers: Pneumonia type: due to unspecified organism Category: Medical Code(s): J18.9 - Pneumonia, unspecified organism (2) Respiratory failure with hypoxia Status: Acute Qualifiers: Chronicity: acute Qualified Code(s): J96.01 - Acute respiratory failure with hypoxia Category: Medical Code(s): J96.91 - Respiratory failure, unspecified with hypoxia (3) Hypertension Status: Chronic Category: Medical Code(s): I10 - Essential (primary) hypertension (4) Hyperlipidemia Status: Chronic Category: Medical Code(s): E78.5 - Hyperlipidemia, unspecified (5) History of breast cancer Status: Chronic Category: Medical Code(s): Z85.3 - Personal history of malignant neoplasm of breast - Assessment and plan all Dx Assessment and Plan for all problems:: #COVID-19 pneumonia: #Community-acquired pneumonia: 65-year-old prior smoker respiratory complaints, personal history of allergies and recurrent sinusitis presented to the hospital with worsening respiratory failure. Chest x-ray showed bilateral patchy infiltrates more on the left than on the right prominent upper lobe infiltrate. Patient also admits loss of taste and smell initially however he regained that now. Patient has possible recent sick contact, her son diagnosed with acute bronchitis but never tested for COVID-19 pneumonia. Patient's COVID-19 viral PCR initially resulted positive however subsequent comprehensive respiratory viral PCR tested negative for COVID-19. Rest of the viral panel negative. Patient received immunization with JJ vaccine a month ago and her IgG antibodies were positive with negative IgM. After extensive discussion with the patient and family, we have opted to treat her for COVID-19 pneumonia. Patient was initiated on remdesivir and dexamethasone along with continuation of her ceftriaxone azithromycin and has completed a 5-day course. Patient respiratory status significantly improved over the weekend. This morning she is on room air. CRP elevated at 144.2 and D-dimer elevated at 0.86 Plan: -Follow in pulmonary clinic in 6 weeks with full PFT and 6 MWT. #Thank you for involving pulmonary in this patient care.
--- NOTE | 2020-07-29 10:42 | HMH.ACPN2 ---
Internal Medicine - PN: Subj *Date: 07/28/20 *Time: 10:42 Interval history: The patient WAS seen on rounds 07/28 AM, but the computer went offline before I could produce a note. She was feeling well and doing well. Exam Vital signs and Labs for Last 24 Hours: Temp Pulse Resp BP Pulse Ox 98.1 F 93 H 20 126/71 92 L 07/29/20 08:00 07/29/20 08:00 07/29/20 08:00 07/29/20 08:00 07/29/20 08:00 Laboratory Results - last 24 hr 07/29/20 05:41: WBC 8.1, RBC 3.75 L, Hgb 11.4 L, Hct 33.4 L, MCV 89.0, MCH 30.4, MCHC 34.2, RDW 12.8, Plt Count 426 H, MPV 7.7, Neut % (Auto) 75.3, Lymph % (Auto) 16.6, [place] % (Auto) 7.5, Eos % (Auto) 0.4, Baso % (Auto) 0.2, Neut # (Auto) 6.1, Lymph # (Auto) 1.3, [place] # (Auto) 0.6, Eos # (Auto) 0.0, Baso # (Auto) 0.0 07/29/20 05:41: Sodium 138, Potassium 4.0, Chloride 109 H, Carbon Dioxide 24, Anion Gap 9.0, BUN 15, Creatinine 0.70, Estimated Creat Clear 76, Estimated GFR 83, Est GFR ( Amer) 101, Glucose 118 H D, Calcium 8.6, Total Bilirubin 0.5, AST 20, ALT 16, Alkaline Phosphatase 63, Total Protein 6.4, Albumin 3.1 L D, Globulin 3.3 H, Albumin/Globulin Ratio 0.9 L I & O for Last 24 hours: Intake & Output 07/26/20 07/27/20 07/28/20 07/29/20 11:59 11:59 11:59 11:59 Intake Total 960 / 960 2450 / 2450 1200 / 1200 960 / 960 Balance 960 / 960 2450 / 2450 1200 / 1200 960 / 960 Weight 194 lb 0.108 oz 194 lb 0.108 oz 194 lb 0.108 oz - Constitutional no acute distress - *Routine HEENT Exam Head: Present: normocephalic Eye: Present: PERRL ENT: Present: mucous membranes moist - *Routine Neck Exam Absent: JVD - *Routine Respiratory Exam Present: CTA bilaterally - *Routine Cardiovascular Exam Present: RRR - *Routine Abdominal Exam Present: soft. Absent: tenderness - *Routine Extremities Exam Absent: edema - *Routine Neurological Exam Present: alert, oriented X3 Assessment and Plan (1) Pneumonia Status: Acute Qualifiers: Pneumonia type: due to unspecified organism Category: Medical Code(s): J18.9 - Pneumonia, unspecified organism (2) Respiratory failure with hypoxia Status: Acute Qualifiers: Chronicity: acute Qualified Code(s): J96.01 - Acute respiratory failure with hypoxia Category: Medical Code(s): J96.91 - Respiratory failure, unspecified with hypoxia (3) Hypertension Status: Chronic Category: Medical Code(s): I10 - Essential (primary) hypertension (4) Hyperlipidemia Status: Chronic Category: Medical Code(s): E78.5 - Hyperlipidemia, unspecified (5) History of breast cancer Status: Chronic Category: Medical Code(s): Z85.3 - Personal history of malignant neoplasm of breast - Assessment and plan all Dx Assessment and Plan for all problems:: The patient was stable on 07/28 and was judged likely nfor discharge 07/29.
--- NOTE | 2020-08-01 16:27 | HMH.DCSUM ---
General - General Admission date:: 07/24/20 Discharge date: 07/29/20 HPI HPI: Ms. Messer is a 65-year-old female who began feeling poorly last Wednesday. She states she developed a fever and a cough. By Wednesday she had lost her sense of taste and smell. She then began having nausea, vomiting, and diarrhea. She began getting short of breath and having some chest pain. She checked her oxygen at home and it began decreasing. It got as low as 64% and she therefore presented to urgent care for testing for Covid as she believed she had all of the symptoms of Covid. She had no known exposure to COVID-19 and had been vaccinated with a [employer] vaccine 1 month ago. She is a former smoker and says she has a touch of asthma. She has never had pneumonia in the past and did get a pneumonia vaccine. She does have a prior history of breast cancer, stomach cancer, and vulvar cancer. She has no active cancer at this time. She was evaluated in urgent care and her oxygen was 86%, therefore she was sent to the emergency room. She had a chest x-ray which showed bilateral pneumonia. Her initial nasal PCR was positive for Covid. She had a repeat upper respiratory panel with Covid PCR along with Covid antibodies. Her repeat upper respiratory panel was negative for Covid. Her IgG was positive and her IgM was negative. She was admitted and started on Zithromax and Rocephin along with some steroids. Hospital Course Hospital Course: Pulmonology was consulted on the case due to the patient's differing Covid tests. Her symptoms were felt to be consistent with Covid and her son had a bronchitis, but had not been tested for Covid. Additionally the patient had past treatment for breast cancer and lymphoma calling into question her overall immune status. The chief of party felt a cautious approach of treating the patient with remdesivir and dexamethasone was warranted. She was also started on antibiotics for bacterial pneumonia coverage. He ordered a CRP and D-dimer. The CRP was elevated at 144.2 and the D-dimer was mildly elevated at 0.86. He wanted to continue to wean her nasal cannula oxygen as well as continue chemical DVT prophylaxis. She was started on duo nebs every 6 hours. She had a repeat chest x-ray on 07/28/2020 showing diffuse consolidations throughout the bilateral lung lundberg. Her oxygen did have to be turned up to 5 L at one point but she was weaned back down. Incentive spirometry was ordered. By 07/29/2020, she felt better and wanted to go home. Her oxygen sats were 91% on room air. Her sputum showed normal respiratory chinmay. It was felt she was stable to be discharged and will need to follow-up with pulmonology in 6 weeks. She will also need to follow-up with her primary care provider. Objective Vital signs: Temp Pulse Resp BP Pulse Ox 98.1 F 93 H 20 126/71 92 L 07/29/20 08:00 07/29/20 08:00 07/29/20 08:00 07/29/20 08:00 07/29/20 08:00 Narrative: - Constitutional no acute distress - *Routine HEENT Exam Head: Present: normocephalic Eye: Present: EOMI, PERRL ENT: Present: mucous membranes dry - *Routine Neck Exam Present: supple. Absent: lymphadenopathy - *Routine Respiratory Exam Present: rales (Faint bibasilar) - *Routine Cardiovascular Exam Present: RRR - *Routine Abdominal Exam Present: soft, normoactive bowel sounds. Absent: tenderness - *Routine Rectal Exam Rectal:: deferred - *Routine Genitalia Exam Genitalia:: deferred - *Routine Extremities Exam Absent: cyanosis, clubbing, edema - *Routine Skin Exam Present: warm. Absent: rash - *Routine Neurological Exam Present: alert, oriented X3 DS: Diagnosis - Discharge Diagnosis (1) Pneumonia Status: Acute (2) Respiratory failure with hypoxia Status: Acute (3) Hypertension Status: Chronic (4) Hyperlipidemia Status: Chronic (5) History of breast cancer Status: Chronic Dis
== END 2020-07-29 12:15 | disposition home or self-care (01) | DRG 177 ==
LOC: UTC 13:54 → ER 14:12 → 2ND 20:22
PROVIDERS: Internal Medicine Pulmonary Disease; Nurse Practitioner Family; Admitting Provider Family Medicine; Emergency Provider Emergency Medicine; PCP Internal Medicine; Visit Provider Family Medicine
DX: U07.1 COVID-19 (principal); J96.01 Acute respiratory failure with hypoxia; J12.82 Pneumonia due to coronavirus disease 2019; I10 Essential (primary) hypertension; E78.5 Hyperlipidemia, unspecified; Z85.3 Personal history of malignant neoplasm of breast; Z85.028 Personal history of other malignant neoplasm of stomach; Z85.89 Personal history of malignant neoplasm of other organs and systems; Z88.5 Allergy status to narcotic agent; Z88.8 Allergy status to other drugs, medicaments and biological substances; Z87.891 Personal history of nicotine dependence
CPT/HCPCS: 36415; 71046; 80053; 83605; 84484; 85007; 85025; 85378; 86140; 86328; 87040; 87070; 87205; 87581; 87633; 87798; 87804; 93005; 94761; 99283; J0456; U0003

== ENCOUNTER → 2020-10-02 12:09 | Outpatient (CLI) | payer MEDICARE, SELFPAY ==
--- NOTE | 2020-10-02 12:15 | XR_ITS ---
PROCEDURE: XR CHEST 2V CLINICAL HISTORY: CHEST PAIN COMPARISON: CR XR CHEST 2V from 07/24/2020 CR XR CHEST 2V from 07/27/2020 FINDINGS: The cardiomediastinal silhouette and pulmonary vascularity are within normal limits. The lungs are clear without infiltrates, suspicious nodules, or pleural effusions. There is a vertical linear density along the left chest laterally. Lung markings are present peripheral to this region. This could be due to an area of scarring. Has the patient had a prior chest tube on the left? Surgical clips are present in the right axilla. IMPRESSION: No acute findings. Dictated by: Manohar Petit MD 10/02/2020 12:48 Manohar Petit MD in [place] 10/02/2020 12:48
== END ==
PROVIDERS: PCP Internal Medicine; Visit Provider Internal Medicine
DX: R07.9 Chest pain, unspecified (principal)
CPT/HCPCS: 71046

== ENCOUNTER → 2020-10-16 12:38 | Outpatient (CLI) | payer MEDICARE, SELFPAY ==
[2020-10-16 13:45] VITALS: PULSE 90; PULSE 91
--- NOTE | 2020-10-16 14:07 | CT_ITS ---
PROCEDURE: CT LUNG SCREENING CLINICAL INDICATION: lung cancer screening COMPARISON: No exams were available for comparison TECHNIQUE: The exam was performed on a GE Light Speed [address] scanner using 2.90 mGy CTDI. A low dose helical CT CHEST was performed on a multi-detector scanner. All CT scans at the facility use one or more dose reduction, viz: automated exposure control, ma/kV adjustment per patient size (including targeted exams where dose is matched to indication, i.e. head), or iterative reconstruction technique. The LDCT was performed in a facility that meets the criteria for the screening program. Data regarding this exam was submitted to ACR which is an approved registry. The order for this exam indicates that it came as a result of a lung cancer screening counseling shard decision-making visit that included all the elements required of such a visit including smoking cessation. The radiologist interpreting this exam meets the CMS criteria for the LDCT lung cancer screening program. The exam is reported using the Lung-RADS classification scale and reported to the ACR registry. NOTE: This study was performed for the specific purposes of lung cancer screening and is not an alternative to diagnostic chest CT. RADIATION DOSE: CTDI vol(CT dose Index-volume) = 2.90mG DLP (Dose Length Product) = 98.9 9 mGcm FINDINGS: COPD with scattered areas of scarring. There is somewhat diffuse scattered ground-glass attenuation in the upper and lower lobes. No suspicious nodules identified. No effusions. OTHER FINDINGS: Thyroid gland is enlarged. There is a mildly prominent precarinal lymph node at 21.2 cm. Severe coronary artery calcification is present. Small hiatal hernia. Degenerative changes thoracic spine with mild kyphosis IMPRESSION: Lung-RADS Category 2 Benign Appearance or Behavior Follow-up: Continue annual screening with LDCT in 12 months There is slightly diffuse scattered ground-glass attenuation. This could be due to small airway disease. Inflammatory/infectious process such is Covid19 pneumonia is also considered. Please correlate with clinical parameters. Dictated by: Manohar Petit MD 10/21/2020 10:11 Manohar Petit MD in [place] 10/21/2020 10:11
== END ==
PROVIDERS: PCP Internal Medicine; Visit Provider Internal Medicine Pulmonary Disease
DX: Z87.891 Personal history of nicotine dependence (principal); Z12.2 Encounter for screening for malignant neoplasm of respiratory organs; R06.09 Other forms of dyspnea
CPT/HCPCS: 71271; 94060; 94640; 94726; 94729

== ENCOUNTER → 2021-01-01 13:25 | Outpatient (CLI) | payer MEDICARE, SELFPAY ==
[2021-01-01 14:25] LABS: Basophils # 0.1 K/mm3 (0-0.2); Basophils % 0.8 % (0.1-2.0); Eosinophils # 0.4 K/mm3 (0.0-0.4); Eosinophils % 4.6 % (0.1-12.0); Hematocrit 42.1 % (37.0-47.0); Lymphocytes # 1.9 K/mm3 (0.7-4.5); Lymphocytes % 24.8 % (10-50); Mean Corpuscular HGB Conc 33.2 g/dL (31.8-35.4); Mean Corpuscular Hemoglobin 31.5 pg (27.0-31.2); Mean Corpuscular Volume 94.7 fl (81-99); Mean Platelet Volume 8.3 fl (7.4-10.4); Monocytes # 0.5 K/mm3 (0.1-1.0); Monocytes % 6.7 % (1.7-9.3); Neutrophils % 63.2 % (37.0-80.0); Platelet Count 248 K/mm3 (142-424); Red Blood Count 4.44 M/mm3 (4.20-5.40); Red Cell Distribution Width 13.2 % (11.5-17.5); White Blood Count 7.8 K/mm3 (4.8-10.8)
[2021-01-01 15:47] LABS: Alanine Aminotransferase 24 U/L (12-78); Albumin Level 4.3 g/dl (3.5-5.0); Albumin/Globulin Ratio 1.5 (1.1-1.8); Alkaline Phosphatase 65 U/L (38-126); Anion Gap 13.9 mEq/L (5-15); Aspartate Amino Transferase 30 U/L (14-36); Bilirubin,Total 0.4 mg/dl (0.2-1.3); Blood Urea Nitrogen 15 mg/dl (7-17); Calcium 9.2 mg/dl (8.4-10.2); Carbon Dioxide 29 mmol/L (22.0-30.0); Chloride 102 mmol/L (98-107); Chol/HDL Ratio 5.5 (1-3.5); Cholesterol 181 mg/dl (140-200); Estimated Glomerular Filt Rate 72 ml/min (>60); GFR (African American) 87 ML/MIN (>60); Globulin 2.8 g/dL (1.3-3.2); Glucose 117 mg/dl (74-100); HDL Cholesterol 33 mg/dl (40-60); Potassium 4.9 mmoL/L (3.5-5.1); Sodium 140 mmol/L (136-145); Total Protein,Serum 7.1 g/dl (6.3-8.2); Triglycerides 293 mg/dl (30-150); VLDL Cholesterol 59 mg/dL (0-40)
[2021-01-01 15:58] LABS: Direct LDL Cholesterol 94.66 mg/dL (100-129)
== END ==
PROVIDERS: Visit Provider Internal Medicine
DX: I10 Essential (primary) hypertension (principal); E78.5 Hyperlipidemia, unspecified; R73.01 Impaired fasting glucose; M15.0 Primary generalized (osteo)arthritis; Z85.3 Personal history of malignant neoplasm of breast
CPT/HCPCS: 80053; 80061; 85025

== ENCOUNTER → 2021-04-14 12:42 | Outpatient (CLI) | payer MEDICARE, SELFPAY ==
--- NOTE | 2021-04-14 12:43 | MM_ITS ---
PROCEDURE INFORMATION: Exam: MG Bilateral Screening 3D Mammography Exam date and time: 04/14/2021 12:43 PM Age: 65 years old Clinical indication: Encounter for screening mammogram for malignant neoplasm of breast TECHNIQUE: Imaging protocol: Bilateral Screening tomosynthesis and 2D mammography including computer-aided detection (CAD) when performed. COMPARISON: No relevant prior studies available. FINDINGS: MAMMOGRAPHY: Breast composition: The breasts are almost entirely fatty. Mass: None. Architectural distortion: No suspicious distortion. Calcifications: No suspicious calcifications. Asymmetric density: None. Skin thickening: None. Axillary adenopathy: None. IMPRESSION: No mammographic evidence of malignancy. Annual screening is recommended unless otherwise clinically indicated. ASSESSMENT: BI-RADS Category 1: Negative
== END ==
PROVIDERS: PCP Internal Medicine; Visit Provider Surgery
DX: Z12.31 Encounter for screening mammogram for malignant neoplasm of breast (principal); Z85.3 Personal history of malignant neoplasm of breast
CPT/HCPCS: 77063; 77067

== ENCOUNTER → 2021-07-04 12:19 | Outpatient (CLI) | payer MEDICARE, SELFPAY ==
[2021-07-04 13:18] LABS: Basophils % 0.7 % (0.1-2.0); Eosinophils # 0.2 K/mm3 (0.0-0.4); Hematocrit 43.2 % (37.0-47.0); Hemoglobin 14.3 g/dL (12.2-16.2); Lymphocytes % 30.7 % (10-50); Mean Corpuscular Hemoglobin 31.8 pg (27.0-31.2); Mean Corpuscular Volume 96.2 fl (81-99); Mean Platelet Volume 8.6 fl (7.4-10.4); Monocytes # 0.5 K/mm3 (0.1-1.0); Monocytes % 8.2 % (1.7-9.3); Neutrophils # 3.7 K/mm3 (1.8-7.8); Neutrophils % 57.4 % (37.0-80.0); Platelet Count 257 K/mm3 (142-424); Red Blood Count 4.49 M/mm3 (4.20-5.40); White Blood Count 6.4 K/mm3 (4.8-10.8)
[2021-07-04 13:45] LABS: Chloride 103 mmol/L (98-107); Potassium 4.7 mmoL/L (3.5-5.1); Sodium 140 mmol/L (136-145)
[2021-07-04 13:47] LABS: Alanine Aminotransferase 27 U/L (12-78); Aspartate Amino Transferase 32 U/L (14-36); Blood Urea Nitrogen 17 mg/dl (7-17); Estimated Glomerular Filt Rate 71 ml/min (>60); GFR (African American) 86 ML/MIN (>60)
[2021-07-04 13:48] LABS: Albumin/Globulin Ratio 1.4 (1.1-1.8); Alkaline Phosphatase 76 U/L (38-126); Anion Gap 14.7 mEq/L (5-15); Bilirubin,Total 0.6 mg/dl (0.2-1.3); Calcium 9.7 mg/dl (8.4-10.2); Carbon Dioxide 27 mmol/L (22.0-30.0); Cholesterol 168 mg/dl (140-200); Globulin 2.8 g/dL (1.3-3.2); Glucose 134 mg/dl (74-100); Total Protein,Serum 6.8 g/dl (6.3-8.2); Triglycerides 290 mg/dl (30-150); VLDL Cholesterol 58 mg/dL (0-40)
[2021-07-04 13:49] LABS: Chol/HDL Ratio 6.2 (1-3.5); HDL Cholesterol 27 mg/dl (40-60)
[2021-07-04 13:59] LABS: Direct LDL Cholesterol 82.49 mg/dL (100-129)
== END ==
PROVIDERS: PCP Internal Medicine; Visit Provider Internal Medicine
DX: I10 Essential (primary) hypertension (principal); E78.5 Hyperlipidemia, unspecified; R73.01 Impaired fasting glucose; M15.0 Primary generalized (osteo)arthritis
CPT/HCPCS: 80053; 80061; 85025

== ENCOUNTER → 2021-11-04 15:19 | Outpatient (CLI) | payer MEDICARE, SELFPAY ==
--- NOTE | 2021-11-04 15:20 | CT_ITS ---
FINAL REPORT CLINICAL HISTORY: lung cancer screening, hx smoker, smoked for 20 years about 1.5 packs per day COMPARISON: October 16, 2020 FINDINGS: Low-Dose Chest CT Axial images were obtained from the lung apex to the mid abdomen by computed tomography. Low-dose protocol was utilized. CTDI vol (mGy): 2.90 DLP (mGy-cm): 96.38 There is no axillary adenopathy. There is no hilar or mediastinal adenopathy. Again noted is a precarinal lymph node measuring 21 mm. There are surgical clips in the right axilla. The heart is proper size. There are moderate coronary artery calcifications. There is no pericardial or pleural effusion. Limited images of the upper abdomen are unremarkable. Lung window images demonstrate mild patchy ground-glass opacities in both lungs which are less evident than on the previous exam and probably related to resolving pneumonitis. No new mass or nodule is identified. IMPRESSION: Modifier S: patchy ground-glass opacities, probably related to resolving pneumonitis. Lung RADS category 1S. Recommend 12 month follow-up low-dose chest CT. Reviewed, Interpreted and Dictated by Ignacio Rubi MD Transcribed by Inez Ojeda Authenticated and [facility]
== END ==
PROVIDERS: PCP Internal Medicine; Visit Provider Internal Medicine Pulmonary Disease
DX: Z87.891 Personal history of nicotine dependence (principal); Z12.2 Encounter for screening for malignant neoplasm of respiratory organs
CPT/HCPCS: 71271

== ENCOUNTER → 2022-01-02 13:23 | Outpatient (CLI) | payer MEDICARE, SELFPAY ==
[2022-01-02 14:21] LABS: Basophils # 0.1 K/mm3 (0-0.2); Basophils % 0.7 % (0.1-2.0); Eosinophils # 0.3 K/mm3 (0.0-0.4); Eosinophils % 3.6 % (0.1-12.0); Hematocrit 45.1 % (37.0-47.0); Hemoglobin 14.8 g/dL (12.2-16.2); Lymphocytes # 1.8 K/mm3 (0.7-4.5); Lymphocytes % 25.6 % (10-50); Mean Corpuscular HGB Conc 32.7 g/dL (31.8-35.4); Mean Corpuscular Hemoglobin 30.7 pg (27.0-31.2); Mean Corpuscular Volume 93.8 fl (81-99); Monocytes # 0.4 K/mm3 (0.1-1.0); Monocytes % 6.4 % (1.7-9.3); Neutrophils # 4.4 K/mm3 (1.8-7.8); Neutrophils % 63.8 % (37.0-80.0); Platelet Count 259 K/mm3 (142-424); Red Blood Count 4.81 M/mm3 (4.20-5.40); Red Cell Distribution Width 12.8 % (11.5-17.5); White Blood Count 6.9 K/mm3 (4.8-10.8)
[2022-01-02 15:56] LABS: Alanine Aminotransferase 32 U/L (12-78); Albumin Level 4.6 g/dl (3.5-5.0); Albumin/Globulin Ratio 1.6 (1.1-1.8); Alkaline Phosphatase 100 U/L (38-126); Aspartate Amino Transferase 36 U/L (14-36); Bilirubin,Total 0.6 mg/dl (0.2-1.3); Blood Urea Nitrogen 17 mg/dl (7-17); Calcium 9.7 mg/dl (8.4-10.2); Carbon Dioxide 24 mmol/L (22.0-30.0); Chloride 101 mmol/L (98-107); Cholesterol 186 mg/dl (140-200); Estimated Glomerular Filt Rate 62 ml/min (>60); GFR (African American) 75 ML/MIN (>60); Globulin 2.8 g/dL (1.3-3.2); Glucose 126 mg/dl (74-100); HDL Cholesterol 31 mg/dl (40-60); Sodium 140 mmol/L (136-145); Total Protein,Serum 7.4 g/dl (6.3-8.2); Triglycerides 347 mg/dl (30-150); VLDL Cholesterol 69 mg/dL (0-40)
[2022-01-02 16:30] LABS: Direct LDL Cholesterol 88.85 mg/dL (100-129)
[2022-01-02 17:37] LABS: Anion Gap 19.9 mEq/L (5-15); Potassium 4.9 mmoL/L (3.5-5.1)
== END ==
PROVIDERS: PCP Internal Medicine; Visit Provider Internal Medicine
DX: I10 Essential (primary) hypertension (principal)
CPT/HCPCS: 80053; 80061; 85025

== ENCOUNTER → 2022-04-06 11:41 | Outpatient (CLI) | payer MEDICARE, SELFPAY | PROVIDERS: PCP Internal Medicine; Visit Provider Internal Medicine | DX: R06.09 Other forms of dyspnea (principal) ==

== ENCOUNTER → 2022-04-15 10:20 | Outpatient (CLI) | payer MEDICARE, SELFPAY ==
--- NOTE | 2022-04-15 10:20 | MM_ITS ---
PROCEDURE INFORMATION: Exam: MG Bilateral Screening 3D Mammography Exam date and time: 04/15/2022 10:37 AM Age: 66 years old Clinical indication: Screening mammogram TECHNIQUE: Imaging protocol: Bilateral Screening tomosynthesis and 2D mammography including computer-aided detection (CAD) when performed. COMPARISON: 1. MG MM DIG SCREENING MAMM BI W/CAD 04/14/2021 12:55 PM 2. MG MM DIG SCREENING MAMM BI W/CAD 04/12/2020 9:02 AM 3. MG MM DIG MAMM BI DX W/CAD 04/10/2019 1:03 PM 4. MG DIG MAMM-DX UNI-LT 08/23/2018 1:42 PM FINDINGS: MAMMOGRAPHY: Breast composition: The breasts are almost entirely fatty. Mass: None. Architectural distortion: No new or suspicious architectural distortion. Calcifications: No new or suspicious calcifications are present Asymmetric density: No new or suspicious asymmetric density is present Skin thickening: None. Axillary adenopathy: None. Other findings: Stable postoperative findings are present on the right IMPRESSION: No mammographic evidence of malignancy. Recommend annual screening mammography unless otherwise clinically indicated. ASSESSMENT: BI-RADS category 2: Benign
== END ==
PROVIDERS: PCP Internal Medicine; Visit Provider Surgery
DX: Z12.31 Encounter for screening mammogram for malignant neoplasm of breast (principal)
CPT/HCPCS: 77063; 77067

== ENCOUNTER → 2022-07-03 11:55 | Outpatient (CLI) | payer MEDICARE, SELFPAY ==
[2022-07-03 13:04] LABS: Basophils % 0.3 % (0.1-2.0); Eosinophils # 0.4 K/mm3 (0.0-0.4); Eosinophils % 5.2 % (0.1-12.0); Hematocrit 41.9 % (37.0-47.0); Hemoglobin 13.4 g/dL (12.2-16.2); Lymphocytes # 2.3 K/mm3 (0.7-4.5); Mean Corpuscular HGB Conc 31.9 g/dL (31.8-35.4); Mean Corpuscular Volume 97.2 fl (81-99); Mean Platelet Volume 8.4 fl (7.4-10.4); Monocytes # 0.5 K/mm3 (0.1-1.0); Monocytes % 7.2 % (1.7-9.3); Neutrophils # 3.8 K/mm3 (1.8-7.8); Neutrophils % 54.4 % (37.0-80.0); Platelet Count 251 K/mm3 (142-424); Red Blood Count 4.31 M/mm3 (4.20-5.40); Red Cell Distribution Width 12.8 % (11.5-17.5); White Blood Count 6.9 K/mm3 (4.8-10.8)
[2022-07-03 13:19] LABS: Creatinine,Urine Random 125 mg/dL (Not Estab.)
[2022-07-03 13:20] LABS: Microalbumin/Creatinine Ratio 6.1
[2022-07-03 13:42] LABS: Alanine Aminotransferase 26 U/L (12-78); Albumin Level 4.1 g/dl (3.5-5.0); Albumin/Globulin Ratio 1.5 (1.1-1.8); Alkaline Phosphatase 77 U/L (38-126); Aspartate Amino Transferase 33 U/L (14-36); Bilirubin,Total 0.6 mg/dl (0.2-1.3); Blood Urea Nitrogen 20 mg/dl (7-17); Carbon Dioxide 22 mmol/L (22.0-30.0); Chloride 102 mmol/L (98-107); Chol/HDL Ratio 4.1 (1-3.5); Cholesterol 134 mg/dl (140-200); Estimated Glomerular Filt Rate 62 ml/min (>60); GFR (African American) 75 ML/MIN (>60); Globulin 2.7 g/dL (1.3-3.2); Glucose 96 mg/dl (74-100); HDL Cholesterol 33 mg/dl (40-60); Sodium 139 mmol/L (136-145); Total Protein,Serum 6.8 g/dl (6.3-8.2); Triglycerides 261 mg/dl (30-150); VLDL Cholesterol 52 mg/dL (0-40)
[2022-07-03 13:53] LABS: Direct LDL Cholesterol 61.61 mg/dL (100-129)
[2022-07-03 14:33] LABS: Hemoglobin A1C 5.8 % (4.0-6.0)
== END ==
PROVIDERS: PCP Internal Medicine; Visit Provider Internal Medicine
DX: I10 Essential (primary) hypertension (principal); E78.5 Hyperlipidemia, unspecified; R73.01 Impaired fasting glucose; Z85.3 Personal history of malignant neoplasm of breast
CPT/HCPCS: 80053; 80061; 82043; 82570; 83036; 85025

== ENCOUNTER 2022-07-24 12:52 | Emergency (ER) | payer MEDICARE, SELFPAY ==
[2022-07-24 13:10] VITALS: BP 141/80; PULSE 90; RESP 18; TEMP 36.8; O2SAT 97; BMI 31.3
[2022-07-24 13:36] VITALS: BP 141/80; PULSE 90; RESP 18; TEMP 36.8; O2SAT 97
--- NOTE | 2022-07-24 13:36 | EXP.UTC ---
Discharge Plan Disposition Patient Disposition: Home, Self-Care Condition: Good Prescriptions Prescriptions: New cephalexin 500 mg capsule 500 mg PO QID 5 Days Qty: 20 0RF No Action budesonide-formoterol [Symbicort] 160-4.5 mcg/actuation HFA aerosol inhaler 1 puff INHALATION QID PRN (Reason: shortness of breath or wheezing) 90 Days Qty: 10.2 3RF aspirin [Adult Low Dose Aspirin] 81 mg tablet,delayed release (DR/EC) 81 mg PO DAILY zinc acetate 25 mg (zinc) capsule 25 mg PO DAILY cinnamon bark 500 mg capsule 500 mg PO BID fluticasone propionate [Flonase Allergy Relief] 50 mcg/actuation spray,suspension 2 spray intranasal DAILY 90 Days Qty: 16 3RF Rx Instructions: administer into each nostril atorvastatin 40 MG tablet 40 mg PO HS omeprazole 40 MG capsule,delayed release(DR/EC) 40 mg PO DAILY gabapentin 300 MG capsule 300 mg PO QID lisinopril 40 MG tablet 40 mg PO DAILY cefdinir 300 MG capsule 300 mg PO BID Qty: 14 0RF Referrals Follow up/Referrals: James Castro MD [Primary Care Provider] - See instructions Activity Restrictions/Add. Instructions Additional Instructions/Restrictions: Take medication as prescribed Neosporin to area may help prevent infection Take medication as prescribed Return if needed Straight to ER if any life threatening symptoms Clinical Impressions Clinical Impression: Wound infection Instructions Patient Instructions: Cephalexin, DI for Wound Infection Discharge ED Provider: Monique Garcia [facility] General Stated complaint: AO 07/23, left pointer finger swelling/pain Mode of Arrival: Ambulatory Source of Information: Patient Limitations: No Limitations Time Seen by Provider: 07/24/22 13:36 Description of Symptoms (Recalled from Triage Doc. by RN): PATIENT C/O WOOD SPLINTER TO LEFT INDEX FINGER YESTERDAY. TDAP NEED HEENT Symptoms (Recalled from RN notes): No Resp Symptoms (Recalled from RN notes): No Skin Symptoms (Recalled from RN notes): Yes MS Symptoms (Recalled from RN notes): No Functional Status (Recalled from RN notes): WNL History of Present Illness Provider Complaint: Patient states that yesterday she got a splinter in her left index finger and she was able to get it out but now it is looking red and swollen she is worried that it may be infected so she came in and was needing a TDAP Related Data Home Medications Medication Instructions Recorded Confirmed atorvastatin 40 mg tablet 40 mg PO HS Cholesterol 07/24/20 11/11/21 gabapentin 300 mg capsule 300 mg PO QID Pain 07/24/20 11/11/21 lisinopril 40 mg tablet 40 mg PO DAILY Hypertension 07/24/20 11/11/21 omeprazole 40 mg capsule,delayed 40 mg PO DAILY acid reflux 07/24/20 11/11/21 release aspirin 81 mg tablet,delayed 81 mg PO DAILY 11/11/21 11/11/21 release (Adult Low Dose Aspirin) cinnamon bark 500 mg capsule 500 mg PO BID 11/11/21 11/11/21 zinc acetate 25 mg (zinc) capsule 25 mg PO DAILY 11/11/21 11/11/21 Previous Rx's Medication Instructions Recorded cefdinir 300 mg capsule 300 mg PO BID #14 caps 07/29/20 budesonide-formoterol HFA 160 1 puff inhalation QID PRN 04/23/21 mcg-4.5 mcg/actuation aerosol shortness of breath or wheezing 90 inhaler (Symbicort) days #10.2 grams fluticasone propionate 50 2 spray intranasal DAILY 90 days 11/11/21 mcg/actuation nasal #16 grams spray,suspension (Flonase Allergy Relief) cephalexin 500 mg capsule 500 mg PO QID 5 days #20 caps 07/24/22 Allergies Allergy/AdvReac Type Severity Reaction Status Date / Time codeine Allergy Severe S-DIFF. Verified 11/11/21 11:00 BREATHING/HIVES hydrocodone Allergy Severe S-DIFF. Verified 11/11/21 11:00 BREATHING/HIVES olmesartan AdvReac Unknown MUSCLE Verified 11/11/21 11:00 CRAMPS/NIGHTMARES Worker's Comp Is this a Worker's Comp case?: No [facility] Disclaimer: The information contained in this section may have been updated after t
== END 2022-07-24 13:47 | disposition home or self-care (01) ==
PROVIDERS: Emergency Provider Nurse Practitioner; PCP Internal Medicine
DX: L03.012 Cellulitis of left finger (principal); J45.20 Mild intermittent asthma, uncomplicated; J30.9 Allergic rhinitis, unspecified; Z87.891 Personal history of nicotine dependence
CPT/HCPCS: 90471; 90715; 96372; 99204; 99212; G0463

== ENCOUNTER → 2022-08-05 09:13 | Outpatient (CLI) | payer MEDICARE, SELFPAY ==
--- NOTE | 2022-08-05 09:19 | MR_ITS ---
FINAL REPORT CLINICAL HISTORY: LUMBAGO..... SCIATICA RIGHT LOW BACK PAIN WITH RIGHT SIDED SCIATICA GOING DOWN TO KNEE COMPARISON: None FINDINGS: Multiplanar MR imaging of the lumbar spine was performed without contrast. On the sagittal T2-weighted images, there is abnormal decreased signal throughout the lumbar discs. The vertebrae are of normal height. There is grade 1 spondylolisthesis at the L4-5 level with moderate loss of disc space height. L1-2: There is no significant canal stenosis or neural foraminal narrowing. L2-3: There is no significant canal stenosis or neural foraminal narrowing. L3-4: There is a [id number] diffuse disc bulge, along with moderate right and mild left neural foraminal narrowing. L4-5: There is a large disc bulge with bilateral facet arthropathy and compromise of the canal with high-grade canal stenosis. There is severe right and moderate to severe left neural foraminal narrowing. L5-S1: There is a left posterolateral disc protrusion and moderate to high-grade left neural foraminal narrowing. IMPRESSION: There are multilevel degenerative changes in the lumbar spine, most prominent at the L4-5 level with high-grade compromise of the AP canal diameter and right greater than left neural foraminal narrowing. Reviewed, Interpreted and Dictated by Ignacio Rubi MD Transcribed by Jeri Bedolla Authenticated and [facility]
== END ==
PROVIDERS: PCP Internal Medicine; Visit Provider Internal Medicine
DX: M54.41 Lumbago with sciatica, right side
CPT/HCPCS: 72148; 76376

== ENCOUNTER → 2022-11-11 15:02 | Outpatient (CLI) | payer MEDICARE, SELFPAY ==
--- NOTE | 2022-11-11 15:02 | CT_ITS ---
FINAL REPORT TECHNIQUE: Thin section axial images were obtained through the lungs using a low-dose technique per lung cancer screening protocol. Reconstruction images were obtained using the axial data. Exam was performed using dose reduction technique. CLINICAL HISTORY: lung cancer screening former, quit 13 yrs ago 1ppd/ 20 years COMPARISON: 11/04/2021 FINDINGS: CTDLvol: 2.90 DLP: 96.30 Form smoker 20 pack year history Lungs: A 4 mm right upper lobe nodule seen on image 28 is likely stable. There is no new mass or nodule. There are bilateral upper lobe groundglass opacities which appear similar to the previous exam and are favored to represent atelectasis or scarring. Lymph nodes: No thoracic lymphadenopathy. Mediastinum: Heart size is normal. Pleura/pericardium: No pleural or pericardial effusion. Other: No acute abnormality in the upper abdomen. The thyroid gland is mildly enlarged. IMPRESSION: No suspicious pulmonary nodule or mass. Stable groundglass opacities, favor atelectasis or scarring. Lung RADS: 2 Recommendation: 12-month low-dose chest CT. Reviewed, Interpreted and Dictated by Caro Andrews MD Transcribed by Tahira Kumar Authenticated and [facility]
== END ==
PROVIDERS: PCP Internal Medicine; Visit Provider Internal Medicine Pulmonary Disease
DX: F17.210 Nicotine dependence, cigarettes, uncomplicated (principal)
CPT/HCPCS: 71271

== ENCOUNTER 2022-11-29 11:05 | Emergency (ER) | payer MEDICARE, SELFPAY ==
[2022-11-29 11:20] VITALS: BP 154/87; PULSE 114; RESP 22; TEMP 36.7; O2SAT 96; BMI 33.1
--- NOTE | 2022-11-29 11:28 | EXP.UTC ---
Discharge Plan Disposition Patient Disposition: Home, Self-Care Condition: Good Prescriptions Prescriptions: No Action atorvastatin 40 MG tablet 40 mg PO HS omeprazole 40 MG capsule,delayed release(DR/EC) 40 mg PO DAILY gabapentin 300 MG capsule 300 mg PO QID lisinopril 40 MG tablet 40 mg PO DAILY fluticasone propionate [Flonase Allergy Relief] 50 mcg/actuation spray,suspension 2 spray intranasal DAILY Rx Instructions: administer into each nostril Referrals Follow up/Referrals: James Castro MD [Primary Care Provider] - See instructions Activity Restrictions/Add. Instructions Additional Instructions/Restrictions: Go straight to [facility] Emergency room as discussed in the [facility] for further evaluation and treatment Return if needed Clinical Impressions Clinical Impression: Drainage from surgical wound Discharge ED Provider: Monique Garcia [facility] HPI General Stated complaint: possible suture infection Mode of Arrival: Ambulatory Source of Information: Patient Limitations: No Limitations Time Seen by Provider: 11/29/22 11:29 Description of Symptoms (Recalled from Triage Doc. by RN): PATIENT STATES SHE HAD A SPINAL FUSION DONE ON 11/18/22 AT ANOTHER FACILITY AND IS WORRIED THAT HER INCISION IS INFECTED. INCISION NOTED TO LOWER BACK WITH SEVERAL LAURA IN PLACE. REDNESS TO SITE AND PURULENT DRAINAGE NOTED TO DRESSING HEENT Symptoms (Recalled from RN notes): No Resp Symptoms (Recalled from RN notes): No Skin Symptoms (Recalled from RN notes): Yes MS Symptoms (Recalled from RN notes): No Functional Status (Recalled from RN notes): WNL History of Present Illness Provider Complaint: Patient states that she had spinal fusion on 11/18/22 States that she is worried that the incision is infected States that she still has laura in and she is having redness, drainage and tenderness in the area States that the drainage is almost persistent States that she was worried that she may have an infection in there so she came in to get it checked Related Data Home Medications Medication Instructions Recorded Confirmed atorvastatin 40 mg tablet 40 mg PO HS Cholesterol 07/24/20 11/29/22 gabapentin 300 mg capsule 300 mg PO QID Pain 07/24/20 11/29/22 lisinopril 40 mg tablet 40 mg PO DAILY Hypertension 07/24/20 11/29/22 omeprazole 40 mg capsule,delayed 40 mg PO DAILY acid reflux 07/24/20 11/29/22 release fluticasone propionate 50 2 spray intranasal DAILY Allergy 11/29/22 11/29/22 mcg/actuation nasal Symptoms spray,suspension (Flonase Allergy Relief) Allergies Allergy/AdvReac Type Severity Reaction Status Date / Time codeine Allergy Severe S-DIFF. Verified 11/17/22 11:02 BREATHING/HIVES hydrocodone Allergy Severe S-DIFF. Verified 11/17/22 11:02 BREATHING/HIVES olmesartan AdvReac Unknown MUSCLE Verified 11/17/22 11:02 CRAMPS/NIGHTMARES Worker's Comp Is this a Worker's Comp case?: No [facility] Disclaimer: The information contained in this section may have been updated after the patient was seen, as this information can be updated by other users. Medical History Allergic rhinitis, unspecified Chronic cough Dyspnea on exertion History of 2019 novel coronavirus disease (COVID-19) Mild intermittent asthma Screening for lung cancer Seasonal allergies Stopped smoking with greater than 30 pack year history Surgical History History of colonoscopy History of lumpectomy Hx of cholecystectomy Family History Other Family history non-contributory Social History Smoking Status: Former smoker second hand exposure: No alcohol intake: never current occupational status: retired Travel in the last 8 weeks: None household members: significant other and family ROS Obtained: Yes All systems revi
[2022-11-29 11:34] VITALS: BP 154/87; PULSE 114; RESP 22; TEMP 36.7; O2SAT 96
== END 2022-11-29 11:42 | disposition home or self-care (01) ==
PROVIDERS: Emergency Provider Nurse Practitioner; PCP Internal Medicine
DX: T81.31XA Disruption of external operation (surgical) wound, not elsewhere classified, initial encounter (principal); Z98.1 Arthrodesis status; J45.909 Unspecified asthma, uncomplicated; Z87.891 Personal history of nicotine dependence
CPT/HCPCS: 99212; 99214; G0463

== ENCOUNTER → 2023-01-15 13:18 | Outpatient (CLI) | payer MEDICARE, SELFPAY ==
[2023-01-15 13:52] LABS: Basophils % 0.3 % (0.1-2.0); Eosinophils # 0.2 K/mm3 (0.0-0.4); Eosinophils % 3.2 % (0.1-12.0); Hemoglobin 12.2 g/dL (12.2-16.2); Lymphocytes # 1.7 K/mm3 (0.7-4.5); Lymphocytes % 24.9 % (10-50); Mean Corpuscular HGB Conc 33.1 g/dL (31.8-35.4); Mean Corpuscular Hemoglobin 31.1 pg (27.0-31.2); Mean Platelet Volume 8.1 fl (7.4-10.4); Monocytes # 0.5 K/mm3 (0.1-1.0); Monocytes % 6.9 % (1.7-9.3); Neutrophils # 4.3 K/mm3 (1.8-7.8); Neutrophils % 64.7 % (37.0-80.0); Platelet Count 302 K/mm3 (142-424); Red Blood Count 3.93 M/mm3 (4.20-5.40); Red Cell Distribution Width 13.6 % (11.5-17.5); White Blood Count 6.7 K/mm3 (4.8-10.8)
[2023-01-15 14:17] LABS: Chloride 104 mmol/L (98-107)
[2023-01-15 14:18] LABS: Potassium 4.7 mmoL/L (3.5-5.1); Sodium 141 mmol/L (136-145)
[2023-01-15 14:20] LABS: Alanine Aminotransferase 25 U/L (12-78); Albumin Level 4.1 g/dl (3.5-5.0); Albumin/Globulin Ratio 1.4 (1.1-1.8); Alkaline Phosphatase 100 U/L (38-126); Anion Gap 15.7 mEq/L (5-15); Aspartate Amino Transferase 27 U/L (14-36); Bilirubin,Total 0.4 mg/dl (0.2-1.3); Blood Urea Nitrogen 20 mg/dl (7-17); Carbon Dioxide 26 mmol/L (22.0-30.0); Estimated Glomerular Filt Rate 55 ml/min (>60); GFR (African American) 67 ML/MIN (>60); Globulin 2.9 g/dL (1.3-3.2)
[2023-01-15 14:21] LABS: Calcium 8.9 mg/dl (8.4-10.2); Chol/HDL Ratio 4.7 (1-3.5); Cholesterol 135 mg/dl (140-200); Glucose 97 mg/dl (74-100); HDL Cholesterol 29 mg/dl (40-60); Triglycerides 162 mg/dl (30-150); VLDL Cholesterol 32 mg/dL (0-40)
[2023-01-15 14:32] LABS: Direct LDL Cholesterol 77.54 mg/dL (100-129)
== END ==
PROVIDERS: PCP Internal Medicine; Visit Provider Internal Medicine
DX: I10 Essential (primary) hypertension (principal); E78.5 Hyperlipidemia, unspecified; R73.01 Impaired fasting glucose; M15.0 Primary generalized (osteo)arthritis; Z85.3 Personal history of malignant neoplasm of breast; Z85.44 Personal history of malignant neoplasm of other female genital organs; Z85.028 Personal history of other malignant neoplasm of stomach
CPT/HCPCS: 80053; 80061; 85025

== ENCOUNTER 2023-04-03 17:37 | Emergency (ER) | payer MEDICARE, SELFPAY ==
[2023-04-03 17:50] VITALS: BP 140/73; PULSE 109; RESP 21; TEMP 36.7; O2SAT 95; BMI 29.9
[2023-04-03 17:59] LABS: Influenza A, PCR Not Detected (NotDetected); Influenza B, PCR Not Detected (NotDetected)
[2023-04-03 18:29] LABS: Coronavirus 19, PCR Detected (NotDetected)
--- NOTE | 2023-04-03 18:43 | ED_ITS ---
Discharge Plan Disposition Patient Disposition: Home, Self-Care Condition: Good Prescriptions Prescriptions: No Action atorvastatin 40 MG tablet 40 mg PO HS omeprazole 40 MG capsule,delayed release(DR/EC) 40 mg PO DAILY gabapentin 300 MG capsule 300 mg PO QID lisinopril 40 MG tablet 40 mg PO DAILY fluticasone propionate [Flonase Allergy Relief] 50 mcg/actuation spray,suspension 2 spray intranasal DAILY Rx Instructions: administer into each nostril Referrals Follow up/Referrals: James Castro MD [Primary Care Provider] - See instructions Activity Restrictions/Add. Instructions Additional Instructions/Restrictions: Return to ER for shortness of air. Make follow up appointment with primary care provider. Clinical Impressions Clinical Impression: COVID-19 Instructions Patient Instructions: DI for COVID-19 (Suspected or Confirmed ), COVID-19: Protecting Yourself When You're at High Risk, Preventing the Spread of Coronavirus Discharge Instructions Discharge ED Provider: Rhonda Hargrove [facility] HPI General Stated complaint: vomitting, runny nose, fever Mode of Arrival: Ambulatory Source of Information: Patient Limitations: No Limitations Time Seen by Provider: 04/03/23 18:32 Description of Symptoms (Recalled from Triage Doc. by RN): PATIENT C/O VOMITING, CHILLS, AND CHEST CONGESTION X 2 DAYS HEENT Symptoms (Recalled from RN notes): No Resp Symptoms (Recalled from RN notes): Yes Skin Symptoms (Recalled from RN notes): No MS Symptoms (Recalled from RN notes): No Functional Status (Recalled from RN notes): WNL History of Present Illness Provider Complaint: Pt reports that for the last 2 days she has had malaise, cough, congestion, and vomiting. She has taken Zofran for her symptoms. Related Data Home Medications Medication Instructions Recorded Confirmed atorvastatin 40 mg tablet 40 mg PO HS Cholesterol 07/24/20 04/03/23 gabapentin 300 mg capsule 300 mg PO QID Pain 07/24/20 11/29/22 lisinopril 40 mg tablet 40 mg PO DAILY Hypertension 07/24/20 04/03/23 omeprazole 40 mg capsule,delayed 40 mg PO DAILY acid reflux 07/24/20 04/03/23 release fluticasone propionate 50 2 spray intranasal DAILY Allergy 11/29/22 11/29/22 mcg/actuation nasal Symptoms spray,suspension (Flonase Allergy Relief) Allergies Allergy/AdvReac Type Severity Reaction Status Date / Time codeine Allergy Severe S-DIFF. Verified 11/17/22 11:02 BREATHING/HIVES hydrocodone Allergy Severe S-DIFF. Verified 11/17/22 11:02 BREATHING/HIVES olmesartan AdvReac Unknown MUSCLE Verified 11/17/22 11:02 CRAMPS/NIGHTMARES Worker's Comp Is this a Worker's Comp case?: No [facility] Disclaimer: The information contained in this section may have been updated after the patient was seen, as this information can be updated by other users. Medical History Allergic rhinitis, unspecified Chronic cough Dyspnea on exertion History of 2019 novel coronavirus disease (COVID-19) Mild intermittent asthma Screening for lung cancer Seasonal allergies Stopped smoking with greater than 30 pack year history Surgical History History of colonoscopy History of lumpectomy Hx of cholecystectomy Family History Other Family history non-contributory Social History Smoking Status: Former smoker second hand exposure: No alcohol intake: never current occupational status: retired Travel in the last 8 weeks: None household members: significant other and family ROS Obtained: Yes All systems reviewed & no additional complaints except as documented Constitutional Constitutional: Reports system reviewed and no additional complaints, except as documented, Reports fatigue, Reports poor appetite, Reports lethargy and Reports malaise Eyes Eyes: Reports system reviewed and no additional complaints, except as documented ENT Ears, Nose, Mouth, and Throat: Reports system reviewed and no additional complaints, except as documented and Reports nasal discharge Cardiovascular Cardiovascular: Reports system reviewed and no additional complaints, except as documented Respiratory Respiratory: Reports system reviewed and no additional complaints, except as documented and Reports non-productive cough Gastrointestinal Gastrointestingal: Reports system reviewed and no additional complaints, except as documented, nausea and vomiting Genitourinary Female Genitourinary: Reports system reviewed and no additional complaints, except as documented Musculoskeletal Musculoskeletal: Reports system reviewed and no additional complaints, except as documented Integumentary/Breasts Skin/Breast: Reports system reviewed and no additional complaints, except as documented Neurologic Neurologic: Reports system reviewed and no additional complaints, except as documented Endocrine Endocrine: Reports system reviewed and no additional complaints, except as documented and Reports fatigue Hematologic/Lymphatic Henatologic/Lymphatic: Reports system reviewed and no additional complaints, except as documented Allergic/Immunologic Allergic/Immunologic: Reports system reviewed and no additional complaints, except as documented Physical Exam General General appearance: alert Comment: ill appearing Head Head exam: atraumatic and normocephalic Eye Eye exam: Present normal appearance ENT ENT exam: Present mucous membranes dry Expanded ENT Exam External ear exam: Present normal external inspection Nasal speculum exam: Bilateral: normal Mouth exam: Present normal external inspection Teeth exam: Present normal inspection Throat exam: Present normal inspection Neck Neck exam: Present normal inspection Chest Chest inspection: Present normal inspection and symmetric chest wall rise Respiratory Respiratory exam: Present normal lung sounds bilaterally Cardiovascular Cardiovascular exam: Present regular rate, normal rhythm and normal heart sounds Abdominal Exam Abdominal exam: Present soft and normal bowel sounds Extremities Exam Extremities exam: Present normal inspection Back Exam Back exam: Present normal inspection Neurological Exam Neurological exam: Present alert and oriented X3 Psychiatric Psychiatric exam: Present normal affect and normal mood Skin Skin exam: Present warm, dry and intact Lymphatic Lymphatic Findings: no adenopathy Medical Decision Making Casimiro Inquiry Pt receiving controlled substance: No Casimiro was queried for this patient: No Vital Signs: 04/03/23 17:50 Temperature 98.1 F Temperature Source Oral Pulse Rate [Left Brachial] 109 H Respiratory Rate 21 Blood Pressure [Left Arm] 140/73 Blood Pressure Mean [Left Arm] 95 Blood Pressure Source [Left Arm] Automatic Cuff Blood Pressure Position [Left Arm] Sitting 02 Sat by Pulse Oximetry 95 Oxygen Delivery Method Room Air Lab Data Lab results reviewed: Yes I reviewed the patient's lab results. Lab Results 04/03/23 17:58: SARS-CoV-2 (PCR) Detected A, Influenza A Untype (PCR) Not detected, Influenza Type B (PCR) Not detected Orders (Tests/Meds): ORDERS Category Date Time Status Rapid PCR Covid and Flu A/B Stat Lab 04/03/23 17:58 Completed
[2023-04-03 18:58] VITALS: BP 140/73; PULSE 109; RESP 21; TEMP 36.7; O2SAT 95
== END 2023-04-03 18:59 | disposition home or self-care (01) ==
PROVIDERS: Emergency Provider Nurse Practitioner Family; PCP Internal Medicine
DX: U07.1 COVID-19 (principal); R50.9 Fever, unspecified; R11.2 Nausea with vomiting, unspecified; R09.81 Nasal congestion
CPT/HCPCS: 87636; 99212; 99213; G0463

== ENCOUNTER 2023-04-21 12:48 | Outpatient (CLI) | payer MEDICARE, SELFPAY ==
--- NOTE | 2023-04-21 12:49 | MM_ITS ---
PROCEDURE INFORMATION: Exam: MG Bilateral Screening 3D Mammography Exam date and time: 04/21/2023 12:49 PM Age: 67 years old Clinical indication: Screening examination TECHNIQUE: Imaging protocol: Bilateral Screening tomosynthesis and 2D mammography including computer-aided detection (CAD) when performed. COMPARISON: 1. MG MM DIG SCREENING MAMM BI W/CAD 04/15/2022 10:37 AM 2. MG MM DIG SCREENING MAMM BI W/CAD 04/14/2021 12:55 PM FINDINGS: MAMMOGRAPHY: Breast composition: The breasts are almost entirely fatty. Mass: None. Architectural distortion: None. Calcifications: No suspicious calcifications. Asymmetric density: None. Skin thickening: None. Axillary adenopathy: None. IMPRESSION: No mammographic evidence of malignancy. Annual screening is recommended unless otherwise clinically indicated. ASSESSMENT: BI-RADS Category 1: Negative
== END 2023-04-21 23:59 ==
LOC: RAD 12:49
PROVIDERS: PCP Internal Medicine; Visit Provider Surgery
DX: Z12.31 Encounter for screening mammogram for malignant neoplasm of breast (principal)
CPT/HCPCS: 77063; 77067

== ENCOUNTER 2023-07-05 16:53 | Outpatient (CLI) | payer MEDICARE, SELFPAY ==
[2023-07-05 18:09] LABS: Alanine Aminotransferase 24 U/L (12-78); Albumin/Globulin Ratio 1.4 (1.1-1.8); Alkaline Phosphatase 79 U/L (38-126); Anion Gap 13.4 mEq/L (5-15); Aspartate Amino Transferase 29 U/L (14-36); Bilirubin,Total 0.5 mg/dl (0.2-1.3); Blood Urea Nitrogen 17 mg/dl (7-17); Calcium 9.3 mg/dl (8.4-10.2); Carbon Dioxide 26 mmol/L (22.0-30.0); Chloride 105 mmol/L (98-107); Chol/HDL Ratio 4.6 (1-3.5); Cholesterol 193 mg/dl (140-200); Estimated Glomerular Filt Rate 62 ml/min (>60); GFR (African American) 75 ML/MIN (>60); Globulin 2.9 g/dL (1.3-3.2); Glucose 88 mg/dl (74-100); HDL Cholesterol 42 mg/dl (40-60); Potassium 4.4 mmoL/L (3.5-5.1); Sodium 140 mmol/L (136-145); Total Protein,Serum 6.9 g/dl (6.3-8.2); Triglycerides 191 mg/dl (30-150); VLDL Cholesterol 38 mg/dL (0-40)
== END 2023-07-05 23:59 | disposition home or self-care (01) ==
LOC: LAB.DROPOF 16:54
PROVIDERS: PCP Internal Medicine; Visit Provider Internal Medicine
DX: I10 Essential (primary) hypertension (principal); E78.5 Hyperlipidemia, unspecified; M15.0 Primary generalized (osteo)arthritis; R73.01 Impaired fasting glucose; Z85.3 Personal history of malignant neoplasm of breast; Z85.44 Personal history of malignant neoplasm of other female genital organs; Z85.028 Personal history of other malignant neoplasm of stomach
CPT/HCPCS: 80053; 80061

== ENCOUNTER 2023-11-19 07:37 | Outpatient (CLI) | payer MEDICARE, SELFPAY ==
--- NOTE | 2023-11-19 07:39 | CT_ITS ---
FINAL REPORT TECHNIQUE: Axial images were obtained from the lung apex to the mid abdomen by computed tomography. This study was performed with techniques to keep radiation doses as low as reasonably achievable (ALARA). Individualized dose reduction techniques using automated exposure control or adjustment of mA and/or kV according to the patient's size were employed. CLINICAL HISTORY: lung cancer screening, former smoker, quit 15 years ago, smoked 1.5ppd for 30 years COMPARISON: 10/17/2022 FINDINGS: CHEST CT LOW DOSE CTDI vol (mGy): 2.90 DLP (mGy-cm): 93.51 There is no axillary adenopathy. There is no hilar or mediastinal adenopathy. The heart is normal in size. There is moderate coronary artery calcification. Surgical clips are seen in the right axilla. There is no pericardial or pleural effusion. There is a stable 4 mm nodule in the posterior right upper lobe. There is minimal scarring in the lingula. Limited images of the upper abdomen are unremarkable. IMPRESSION: Stable right upper lobe nodule. Lung RADS category 2. Recommend 12 month follow-up low-dose chest CT. Reviewed, Interpreted and Dictated by Ignacio Rubi MD Transcribed by Phyllis Prince Authenticated and [facility]
== END 2023-11-19 23:59 | disposition home or self-care (01) ==
LOC: RAD 07:39
PROVIDERS: PCP Internal Medicine; Visit Provider Internal Medicine Pulmonary Disease
DX: F17.210 Nicotine dependence, cigarettes, uncomplicated (principal)
CPT/HCPCS: 71271

== ENCOUNTER 2024-01-17 09:45 | Outpatient (CLI) | payer MEDICARE, SELFPAY ==
[2024-01-17 17:19] LABS: Basophils # 0.1 K/mm3 (0-0.2); Basophils % 0.8 % (0.1-2.0); Eosinophils # 0.4 K/mm3 (0.0-0.4); Eosinophils % 4.9 % (0.1-12.0); Hemoglobin 14.1 g/dL (12.2-16.2); Lymphocytes # 1.9 K/mm3 (0.7-4.5); Lymphocytes % 25.5 % (10-50); Mean Corpuscular HGB Conc 32.7 g/dL (31.8-35.4); Mean Corpuscular Hemoglobin 31.4 pg (27.0-31.2); Mean Platelet Volume 8.3 fl (7.4-10.4); Monocytes # 0.4 K/mm3 (0.1-1.0); Monocytes % 5.9 % (1.7-9.3); Neutrophils # 4.6 K/mm3 (1.8-7.8); Neutrophils % 62.9 % (37.0-80.0); Platelet Count 226 K/mm3 (142-424); Red Blood Count 4.48 M/mm3 (4.20-5.40); Red Cell Distribution Width 13.1 % (11.5-17.5); White Blood Count 7.3 K/mm3 (4.8-10.8)
[2024-01-17 18:09] LABS: Albumin Level 4.4 g/dl (3.5-5.0); Chloride 107 mmol/L (98-107); Potassium 4.6 mmoL/L (3.5-5.1); Sodium 141 mmol/L (136-145)
[2024-01-17 18:11] LABS: Alanine Aminotransferase 24 U/L (12-78); Anion Gap 15.6 mEq/L (5-15); Aspartate Amino Transferase 30 U/L (14-36); Blood Urea Nitrogen 22 mg/dl (7-17); Carbon Dioxide 23 mmol/L (22.0-30.0); Estimated Glomerular Filt Rate 55 ml/min (>60); GFR (African American) 66 ML/MIN (>60)
[2024-01-17 18:12] LABS: Albumin/Globulin Ratio 1.6 (1.1-1.8); Alkaline Phosphatase 76 U/L (38-126); Bilirubin,Total 0.5 mg/dl (0.2-1.3); Calcium 9.7 mg/dl (8.4-10.2); Chol/HDL Ratio 5.5 (1-3.5); Cholesterol 188 mg/dl (140-200); Globulin 2.7 g/dL (1.3-3.2); Glucose 98 mg/dl (74-100); HDL Cholesterol 34 mg/dl (40-60); Total Protein,Serum 7.1 g/dl (6.3-8.2); Triglycerides 344 mg/dl (30-150); VLDL Cholesterol 69 mg/dL (0-40)
[2024-01-17 18:23] LABS: Direct LDL Cholesterol 83.99 mg/dL (100-129)
== END 2024-01-17 23:59 | disposition home or self-care (01) ==
LOC: LAB.DROPOF 01-18 11:51
PROVIDERS: PCP Internal Medicine; Visit Provider Internal Medicine
DX: E78.5 Hyperlipidemia, unspecified (principal); I10 Essential (primary) hypertension; Z87.891 Personal history of nicotine dependence
CPT/HCPCS: 80053; 80061; 85025

== ENCOUNTER 2024-04-25 13:01 | Outpatient (CLI) | payer MEDICARE, SELFPAY ==
--- NOTE | 2024-04-25 13:01 | MM_ITS ---
PROCEDURE INFORMATION: Exam: MG Bilateral Screening 3D Mammography Exam date and time: 04/25/2024 1:33 PM Age: 68 years old Clinical indication: Screening. Personal history of right breast lymphoma status post lumpectomy. TECHNIQUE: Imaging protocol: Bilateral Screening tomosynthesis and 2D mammography including computer-aided detection (CAD) when performed. COMPARISON: 1. MG MM DIG SCREENING MAMM BI W/CAD 04/21/2023 12:49 PM 2. MG MM DIG SCREENING MAMM BI W/CAD 04/15/2022 10:37 AM 3. MG MM DIG SCREENING MAMM BI W/CAD 04/14/2021 12:55 PM 4. MG MM DIG SCREENING MAMM BI W/CAD 04/12/2020 9:02 AM FINDINGS: MAMMOGRAPHY: Breast composition: The breasts are almost entirely fatty. Mass: None. Architectural distortion: Stable right architectural distortion status post lumpectomy. Calcifications: No suspicious calcifications. Asymmetric density: None. Skin thickening: Stable mild right breast thickening. Axillary adenopathy: None. IMPRESSION: No mammographic evidence of malignancy. Annual screening is recommended unless otherwise clinically indicated. In women diagnosed with breast cancer before age 50 or with personal histories of breast cancer and dense breasts, the [employer] recommends annual supplemental MRI in addition to yearly mammography. Alternative supplemental studies may include breast sonography or contrast enhanced mammography. ASSESSMENT: BI-RADS Category 2: Benign.
== END 2024-04-25 23:59 | disposition home or self-care (01) ==
LOC: RAD 13:01
PROVIDERS: PCP Internal Medicine; Visit Provider Internal Medicine
DX: Z12.31 Encounter for screening mammogram for malignant neoplasm of breast (principal)
CPT/HCPCS: 77063; 77067

== ENCOUNTER 2024-07-17 09:37 | Outpatient (CLI) | payer MEDICARE, SELFPAY ==
--- NOTE | 2024-07-17 09:41 | XR_ITS ---
FINAL REPORT CLINICAL HISTORY: Right hip pain, history of cancer pain radiates down into leg, limited rom, limping COMPARISON: None FINDINGS: 2 AP and frog leg views of the right hip were obtained. There is no acute fracture or dislocation. Mild degenerative changes present. Soft tissues are unremarkable. IMPRESSION: Mild right hip degenerative change, with no acute osseous abnormality of the right hip. Reviewed, Interpreted and Dictated by Caro Andrews MD Transcribed by Jeri Bedolla Authenticated and [facility]
[2024-07-17 14:38] LABS: Basophils % 0.5 % (0.1-2.0); Eosinophils # 0.3 Kmm3 (0.0-0.4); Eosinophils % 5.1 % (0.1-12.0); Hematocrit 39.7 % (37.0-47.0); Hemoglobin 12.5 g/dL (12.2-16.2); Immature Granulocytes # 0.01 10^3uL; Immature Granulocytes % 0.2 %; Lymphocytes # 1.9 K/mm3 (0.7-4.5); Lymphocytes % 31.6 % (10-50); Mean Corpuscular HGB Conc 31.5 g/dL (31.8-35.4); Mean Corpuscular Hemoglobin 30.4 pg (27.0-31.2); Mean Corpuscular Volume 96.6 fl (81-99); Mean Platelet Volume 9.8 fl (7.4-10.4); Monocytes # 0.6 K/mm3 (0.1-1.0); Monocytes % 9.2 % (1.7-9.3); Neutrophils # 3.3 K/mm3 (1.8-7.8); Neutrophils % 53.4 % (37.0-80.0); Nucleated Red Blood Cells # 0 10^3/uL; Nucleated Red Blood Cells % 0 %; Platelet Count 216 K/mm3 (142-424); Red Blood Count 4.11 M/mm3 (4.20-5.40); Red Cell Distribution Width 12.8 % (11.5-17.5); Red Cell Distribution Width-SD 44.9 fL; White Blood Count 6.1 K/mm3 (4.8-10.8)
[2024-07-17 15:02] LABS: Alanine Aminotransferase 25 U/L (12-78); Albumin Level 4.2 g/dl (3.5-5.0); Albumin/Globulin Ratio 1.4 (1.1-1.8); Alkaline Phosphatase 70 U/L (38-126); Anion Gap 12.9 mEq/L (5-15); Aspartate Amino Transferase 26 U/L (14-36); Bilirubin,Total 0.6 mg/dl (0.2-1.3); Blood Urea Nitrogen 22 mg/dl (7-17); Calcium 9.3 mg/dl (8.4-10.2); Carbon Dioxide 25 mmol/L (22.0-30.0); Chloride 108 mmol/L (98-107); Chol/HDL Ratio 4.8 (1-3.5); Cholesterol 169 mg/dl (140-200); Estimated Glomerular Filt Rate 55 ml/min (>60); GFR (African American) 66 ML/MIN (>60); Globulin 2.9 g/dL (1.3-3.2); Glucose 107 mg/dl (74-100); HDL Cholesterol 35 mg/dl (40-60); Potassium 4.9 mmoL/L (3.5-5.1); Sodium 141 mmol/L (136-145); Total Protein,Serum 7.1 g/dl (6.3-8.2); Triglycerides 288 mg/dl (30-150); VLDL Cholesterol 58 mg/dL (0-40)
[2024-07-17 15:13] LABS: Direct LDL Cholesterol 67.06 mg/dL (100-129)
== END 2024-07-17 23:59 | disposition home or self-care (01) ==
LOC: RAD 09:38
PROVIDERS: PCP Internal Medicine; Visit Provider Internal Medicine
DX: M16.11 Unilateral primary osteoarthritis, right hip (principal); E78.5 Hyperlipidemia, unspecified; I10 Essential (primary) hypertension; Z85.3 Personal history of malignant neoplasm of breast; Z85.44 Personal history of malignant neoplasm of other female genital organs; Z85.72 Personal history of non-Hodgkin lymphomas
CPT/HCPCS: 73502; 80053; 80061; 85025

== ENCOUNTER 2024-11-23 12:24 | Outpatient (CLI) | payer MEDICARE, SELFPAY ==
[2024-11-23 13:40] VITALS: PULSE 102; PULSE 106
[2024-11-23] MEDS: ALBUTEROL 0.083% 2.5 MG/3 ML NEB IH (13:40)
--- NOTE | 2024-11-23 14:00 | CT_ITS ---
FINAL REPORT TECHNIQUE: Thin section axial images were obtained through the lungs using a low-dose technique per lung cancer screening protocol. Reconstruction images were obtained using the axial data. Exam was performed using dose reduction technique. CLINICAL HISTORY: lung cancer screening former smoker, quit 20 yrs ago, 1.5 ppd COMPARISON: 11/19/2023 FINDINGS: CTDLvol: 2.90 DLP: 94.55 Former smoker 45 pack year history Lungs: There has been no change in the 4 mm posterior right upper lobe nodule as seen on series 4 image 29. No new pulmonary nodule or mass identified. There are no consolidations. Lymph nodes: No thoracic lymphadenopathy. Mediastinum: Heart size is normal. Prominent coronary artery calcifications. Pleura/pericardium: No pleural or pericardial effusion. Other: No acute abnormality in the upper abdomen. IMPRESSION: Stable posterior right upper lobe pulmonary nodule. Modifier S: Prominent coronary artery calcifications Lung RADS: 2S Recommendation: 12-month follow-up low-dose chest CT Reviewed, Interpreted and Dictated by Caro Andrews MD Transcribed by Maria Victoria Kang Authenticated and [facility]
== END 2024-11-23 23:59 | disposition home or self-care (01) ==
LOC: RT 12:25
PROVIDERS: PCP Internal Medicine; Visit Provider Internal Medicine Pulmonary Disease
DX: J44.9 Chronic obstructive pulmonary disease, unspecified (principal); J43.9 Emphysema, unspecified; R91.1 Solitary pulmonary nodule; I25.10 Atherosclerotic heart disease of native coronary artery without angina pectoris; F17.210 Nicotine dependence, cigarettes, uncomplicated; Z12.2 Encounter for screening for malignant neoplasm of respiratory organs; R94.2 Abnormal results of pulmonary function studies
CPT/HCPCS: 71271; 94010; 94618; 94640

== ENCOUNTER → 2024-12-19 09:34 | Outpatient (RCR) | payer MEDICARE, SELFPAY | LOC: PULREHAB 09:34 | PROVIDERS: PCP Internal Medicine; Visit Provider Internal Medicine Pulmonary Disease | DX: R06.02 Shortness of breath (principal); R06.09 Other forms of dyspnea | CPT/HCPCS: G0237; G0238 ==

== ENCOUNTER 2024-12-27 10:37 | Outpatient (CLI) | payer MEDICARE, SELFPAY ==
--- NOTE | 2024-12-27 | CA_ITS ---
APPROVED REPORT Exam: Pharmacologic Technologist: [place] Ht: 5 ft 5 in Wt: 189 lbs BSA: 1.93 m2 HR: 99 bpm BP: 131/74 mmHg Rhythm: NSR Stress Test Details Test: Pharmacologic stress testing performed using 0.4 mg of regadenoson per 5 mL given IV over 10 seconds. HR Resting HR: 99 bpm Max Heart Rate (APMHR): 149.794160 bpm Max HR Achieved: 131 bpm Target HR (85% APMHR): 126.482726 bpm % of APMHR: 87.92 Recovery HR: 110 bpm BP Resting BP: 131.0/74.0 mmHg Max BP: 146.0/76.0 mmHg Recovery BP: 112.0/88.0 mmHg ECG Clinical Reason for Termination: Completed protocol Stress ECG Conclusion Symptoms - none Arrhythmias - PVC/PAC/Ventricular couplet ST-T - less than 0.5mm upsloping ST segment changes Nondiagnostic ECG/Lexiscan Electronically signed by : Kayley Koch MD 12/30/2024 02:15:54
--- OUTSIDE RECORDS SUMMARY | 2024-12-27 10:43 | XMS_ITS | Clinical Summary ---
Author Organization Healthcare Address [address] [place] [address] Care Team Providers Care Vamp Presser Name Role Phone Pcp, No Primary Care Provider Unavailabl e Allergies Active Allergy Reactions Criticality Noted Date Comments Clindamycin Diarrhea Low 05/13/2023 Codeine Hives,Unknown - Patient states they do not know rxn details Medium 11/19/2014 Olmesartan Unknown - Patient states they do not know rxn details Low 11/19/2014 Oxycodone-Acetaminophen Other - please document in the comment field Low 05/13/2023 Put her out Medications gabapentin (Neurontin) 300 MG capsule Take 1 capsule (300 mg) by mouth 3 (three) times a day. Active lisinopril 40 MG tablet Take 1 tablet (40 mg) by mouth 1 (one) time each day. Active omeprazole (PriLOSEC) [address] capsule Take 1 capsule (40 mg) by mouth 1 (one) time each day. Do not crush or chew. Active acetaminophen (Tylenol) 325 MG tablet Take by mouth every 6 (six) hours if needed for mild pain. Active diphenhydrAMINE (BENADryl) 25 MG tablet Take by mouth. Activ e b complex tablet Take 1 tablet by mouth 1 (one) time each day. Active alpha tocopherol (Vitamin E) 400 units capsule Take 1 capsule (400 Units) by mouth 1 (one) time each day. Active cholecalciferol (Vitamin D3) 25 MCG (1000 UT) tablet Take 1 tablet (1,000 Units) by mouth 1 (one) time each day. Active calcium carbonate EX (Tums Extra Strength) 750 MG chewable tablet Chew 750 mg 1 (one) time each day. Active Potassium Bicarb & Chloride (potassium bicarbonate & potassium chloride) 25 MEQ effervescent tablet Take 32 tablets (800 mEq) by mouth 2 (two) times a day. Active ferrous sulfate 325 (65 Fe) MG tablet Take 1 tablet (325 mg) by mouth 1 (one) time each day with breakfast. Active fluticasone (Flonase) 50 MCG/ACT nasal spray Administer 1 spray into each nostril 1 (one) time each day. Shake gently. Before first use, prime pump. After use, clean tip and replace cap. Active magnesium 30 MG tablet Take 250 mg by mouth 2 (two) times a day. Active omega-3 (Fish Oil) 1000 MG capsule Take 1 capsule (1,000 mg) by mouth 2 (two) times a day with meals. Active ascorbic acid (Vitamin C) 100 MG tablet Take 1 tablet (100 mg) by mouth 1 (one) time each day. Active biotin 1000 MCG tablet Take 500 mcg by mouth 1 (one) time each day. Active ipratropium-albut olga (Combivent Respimat) 20-100 MCG/ACT inhaler Inhale 1 puff 4 (four) times a day. Active atorvastatin (Lipitor) 40 MG tablet Take 1 tablet (40 mg) by mouth every night. 4 Active Multiple Vitamins-Minerals (ZINC PO) Take 50 mg by mouth 1 (one) time each day. Active CALCIUM PO Take 800 mg by mouth 1 (one) time each day. Active Active Problems No known active problems Family History Medical History Relation Name Comments Bone cancer Father Family history of bone cancer Relation Name Status Comments Father Social History Tobacco Use Types Packs/Day Years Used Date Smoking Tobacco: Former Cigarettes 1 15 0 03/09/1993 - 03/09/2008 Smokeless Tobacco: Never Alcohol Use Standard Drinks/Week Comments Not Currently 0 (1 standard drink = 0.6 oz pur e alcohol) A beer 3 a year PHQ-2 Answer Date Recorded Patient Health Questionnaire-2 Score 0 05/13/2023 Comments No Sex and Gender Information Value Date Recorded Sex Assigned at Not on file Legal Sex Female 7:57 PM EDT Gender Identity Not on file Sexual Orientation Not on file Last Filed Vital Signs Vital Sign Reading Time Taken Comments Blood Pressure 151/91 05/15/2024 11:24 AM EDT Pulse 84 05/15/2024 11:24 AM EDT Temperature 36.5 C (97.7 F) 05/15/2024 11:24 AM EDT Respiratory Rate 18 05/15/2024 11:24 AM EDT Oxygen Saturation 94% 05/15/2024 11:24 AM EDT Inhaled Oxygen Concentration - - Weight 90.1 kg (198 lb 9.6 oz) 05/15/2024 11:24 AM EDT Height 167.6 cm (5' 6 ) 05/13/2023 8:52 AM EDT Body Mass Index 32.05 05/13/2023 8:52 AM EDT Plan of Treatment Upcoming Encounters Date Type Department Care Team (Late st Contact Info) Description 05/10/2025 10:45 AM EDT Office Visit [facility] [address] [place] [address] Erica Aguirre MD [address] [facility] [address] [place] [address] Health Maintenance Due Date Last Done Comments [facility]-Bone Density Scan 1955 [facility]-Hepatitis C Screening 1955 [facility]-Medicare Annual Wellness (AWV) 1955 [facility]-Infant/Child/Adol SDOH Screenings 1955 [facility]-Obesity Intervention 05/15/1959 [facility]- SDOH Screenings 05/15/1971 [facility]-Adult SDOH Screenings 05/15/1971 CT Colonography 1998 Colonoscopy 1998 FIT-DNA 1998 FIT 1998 FOBT 1998 Sigmoidoscopy 1998 [facility]-Colorectal Cancer Screening 1998 [facility]-Zoster Vaccines (1 of 2) 05/15/2003 [facility]-RSV Vaccine: 60+ Years o r (1 - Risk 60-74 years 1-dose series) 2013 [facility]-Breast Cancer Screening 04/07/2020 02/2 02/2018, 04/07/2018 [id number] Vaccine (2 - Cecilia risk series) 07/24/2020 06/26/2020 [facility]-Pneumococcal Vaccine: 50 + Years (3 of 3 - PCV20 or PCV21) 11/19/2023 11/18/2018, 12/08/2017 [facility]-Depression Screening 05/12/2024 05/13/2023 [facility]-Influenza Vaccine (#1) 10/16/202411/18, 11/14/2020, 11/24/2019 [facility]-DTaP,Tdap,and Td Vaccine s (2 - Td or Tdap) 07/24/2032 07/24/2022 HPV Vaccines Aged Out No longer eligi ble based on patient's age to complete this topic [facility]-HIB Vaccines Aged Out No longer e ligible based on patient's age to complete this topic [facility]-Hepatitis A Vaccines Aged Out No longer eligible based on patient's age to complete this topic [facility]-IPV Vaccines Aged Out No longer e ligible based on patient's age to complete this topic [facility]-Rotavirus Vaccines Aged Out No lo nger eligible based on patient's age to complete this topic Insurance [employer] Care Teams Vamp Presser Relationship Specialty Start [place] [address] PCP - General Family Medicine 05/13/23 Patient was a hospital discharge Referring Physician 11/11/20
--- NOTE | 2024-12-27 11:15 | CA_ITS ---
APPROVED REPORT EXAM: Comprehensive 2D, Doppler, and color-flow Echocardiogram Post Tensioning Ironworker: LARON Manzanares, RVS Ht: 5 ft 5 in Wt: 189lbs BSA: 1.93 BP: 147/79 mmHg Indications: Abn EKG, Abn ct, HTN, HLD, Exsmoker 2D Dimensions IVSd 0.88 cm LVEF (Visual) 77.70 % PWd 0.88 cm LA Volume 30.40 mL LVDd 4.24 cm LA Volume Index 15.40 mL/m2 (M/F) 16-34 LVDs 2.29 cm EF AP4 58.20 % Left Atrium 2.54 cm GL Strain -18.1 % M-Mode Dimensions LA Diam 3.53 cm (1.9-4.0) TAPSE 1.22 (<1.7) LV Diastology E Decel Time 97 (160-240 msec) E/A Ratio 1.53 MED A' 12.60 cm/s LAT A' 12.80 cm/s Aortic Valve CORRINA Index 1.10 cm2/m2 AoV Peak Corbin. 143.0 (50-130 cm/s) AO Peak GR. 8.20 mmHg AO Mean GR. 4.00 (<5 mmHg) AO VTI 23.5 (18-25 cm) CORRINA (VTI) 2.17 (2.5-4.5 cm2) Mitral Valve MV A Velocity 74.0 (40-130 cm/s) E/A Ratio 1.53 Pulmonary Valve PV Peak Velocity 84.0 (50-150 cm/s) Left Ventricle The left ventricle is normal size. Left ventricular systolic function is normal. The left ventricular ejection fraction is within the normal range. There is normal left ventricular wall thickness. There is normal LV segmental wall motion. The left ventricular diastolic function is normal. LVEF is 55% Right Ventricle The right ventricle is normal size. The right ventricular systolic function is normal. Atria The left atrium size is normal. The right atrium size is normal. There is no color Doppler evidence of interatrial shunt. Aortic Valve The aortic valve opens well. There is no hemodynamically significant aortic valvular stenosis. Trace aortic regurgitation is present. Mitral Valve The mitral valve is normal in structure. No evidence of mitral valve stenosis. Trace mitral regurgitation is present. Tricuspid Valve The tricuspid valve leaflets are thin and pliable. Trace tricuspid regurgitation. There is insufficient TR jet to estimate RVSP. Pulmonic Valve The pulmonary valve is grossly normal in structure. Trace pulmonic valve regurgitation is present. Great Vessels The aortic root is normal in size. IVC is normal in size and collapses >50% with inspiration. Pericardium There is no pericardial effusion. Other Information Study Quality: Fair Conclusion Normal biventricular systolic function. No significant valvular stenosis or regurgitation. Electronically signed by : Kayley Koch MD 01/03/2025 21:41:49
--- NOTE | 2024-12-27 12:00 | NM_ITS ---
APPROVED REPORT Exam: Nuclear Stress Test Indication: hypertension..family hx Patient Location: Outpatient Stress Tech: [place] Tech:KERRI LoveT, RT (R)(N) Ht: 5 ft 5 in Wt: 185 lbs Bra Size: 42d HR: 89 bpm BP: 131/74 mmHg BSA: 1.91 m2 TID: 0.95 BMI: 30.7 History: hypertension..family hx Procedure: Patient received 0.4 mg of intravenous Lexiscan, resting heart rate 89 bpm, resting blood pressure 131/74 mmHg, with Lexiscan maximum heart rate achieved was 134 bpm which is 85 % of the maximum predicted heart rate and blood pressure was 146/76 mmHg. With Lexiscan, patient denied any complaint of chest pain. Cardiac Stress and Resting SPECT Images: Cardiac Stress and Resting SPECT images were obtained using technetium 99m Myoview 30.9 mCi stress and 10.03 mCi at rest. Technically difficult study due significant soft tissue overlap, particularly in prone stress imaging. Resting and stress imaging in supine and prone positions demonstrate no evidence of fixed or reversible perfusion defects. Gated imaging demonstrates normal global LV systolic function. LVEF is calculated at 58%. Conclusion: Technically difficult study. No evidence of fixed or reversible perfusion defects. Gated imaging demonstrates normal global LV systolic function. LVEF is calculated at 58%. Electronically signed by : Kayley Koch MD 12/30/2024 02:14:47
[2024-12-27 13:40] VITALS: BP 131/74; PULSE 99; RESP 14
[2024-12-27] MEDS: SODIUM CHLORIDE 0.9% 10ML SYR (RAD ONLY) 10 ML IV ×2 (13:52)
[2024-12-27] MEDS: ISOTOPE MYOVIEW (PER STUDY) 1 DOSE IV (13:52)
== END 2024-12-27 23:59 | disposition home or self-care (01) ==
LOC: RT 12:07 → RAD 12:09
PROVIDERS: PCP Internal Medicine; Visit Provider Internal Medicine
DX: I49.1 Atrial premature depolarization (principal); I49.3 Ventricular premature depolarization; I25.10 Atherosclerotic heart disease of native coronary artery without angina pectoris; I10 Essential (primary) hypertension; R94.31 Abnormal electrocardiogram [ECG] [EKG]; E78.5 Hyperlipidemia, unspecified; Z87.891 Personal history of nicotine dependence
CPT/HCPCS: 78452; 93017; 93018; 93306; A9502; J2785

== ENCOUNTER 2025-01-16 10:10 | Outpatient (CLI) | payer MEDICARE, SELFPAY ==
[2025-01-16 14:47] LABS: Hematocrit 42.0 % (37.0-47.0); Hemoglobin 13.7 g/dL (12.2-16.2); Immature Granulocytes % 0.4 %; Mean Corpuscular HGB Conc 32.6 g/dL (31.8-35.4); Mean Corpuscular Hemoglobin 30.6 pg (27.0-31.2); Mean Corpuscular Volume 94.0 fl (81-99); Nucleated Red Blood Cells % 0 %; Platelet Count 240 K/mm3 (142-424); Red Blood Count 4.47 M/mm3 (4.20-5.40); Red Cell Distribution Width-SD 42.9 fL; White Blood Count 8.1 K/mm3 (4.8-10.8)
[2025-01-16 14:56] LABS: Alanine Aminotransferase 25 U/L (12-78); Albumin Level 4.5 g/dl (3.5-5.0); Albumin/Globulin Ratio 1.4 (1.1-1.8); Alkaline Phosphatase 92 U/L (38-126); Anion Gap 12.5 mEq/L (5-15); Aspartate Amino Transferase 27 U/L (14-36); Bilirubin,Total 0.5 mg/dl (0.2-1.3); Blood Urea Nitrogen 25 mg/dl (7-17); Calcium 9.8 mg/dl (8.4-10.2); Carbon Dioxide 21 mmol/L (22.0-30.0); Chloride 107 mmol/L (98-107); Cholesterol 151 mg/dl (140-200); Creatinine,Serum 1.00 mg/dl (0.52-1.04); Estimated Glomerular Filt Rate 55 ml/min (>60); GFR (African American) 66 ML/MIN (>60); Globulin 3.2 g/dL (1.3-3.2); Glucose 126 mg/dl (74-100); HDL Cholesterol 31 mg/dl (40-60); Potassium 4.5 mmoL/L (3.5-5.1); Sodium 136 mmol/L (136-145); Total Protein,Serum 7.7 g/dl (6.3-8.2); Triglycerides 254 mg/dl (30-150)
--- OUTSIDE RECORDS SUMMARY | 2025-01-17 10:15 | XMS_ITS | Clinical Summary ---
Author Organization Healthcare Address [address] [place] [address] Care Team Providers Care Engine Lathe Tender Name Role Phone Pcp, No Primary Care [...] [address] [place] [address] Erica Aguirre MD [address] [facility] [address] [place] [address] Health Maintenance Due Date Last Done Comments [facility]-Bone Density Scan 1953 [facility]-Hepatitis C Screening 1955 [facility]-Medicare Annual Wellness (AWV) 1955 [facility]-/Child/Adol SDOH Screenings 1955 [facility]-Obesity Intervention 05/15/1959 [facility]- SDOH Screenings 05/15/1971 [facility]-Adult SDOH Screenings 05/15/1971 CT Colonography 1998 Colonoscopy 1998 FIT-DNA 1998 FIT 1998 FOBT 1998 Sigmoidoscopy 1998 [facility]-Colorectal Cancer Screening 1998 [facility]-Zoster Vaccines (1 of 2) 05/15/2003 [facility]-RSV Vaccine: 60+ Years o r (1 - Risk 60-74 years 1-dose series) 2013 [facility]-Breast Cancer Screening 04/07/2020 02/2 02/2018, 04/07/2018 [id number] Vaccine (2 - Cecilia risk series) 07/24/2020 [...] to complete this topic Insurance [place] [address] Care Teams Engine Lathe Tender Relationship Specialty Start [place] [address] PCP - General Family Medicine 05/13/23 Patient was a hospital discharge Referring Physician 11/11/20
== END 2025-01-16 23:59 ==
LOC: LAB.DROPOF 01-17 10:11
PROVIDERS: PCP Internal Medicine; Visit Provider Internal Medicine
DX: E78.49 Other hyperlipidemia (principal); I10 Essential (primary) hypertension; I25.10 Atherosclerotic heart disease of native coronary artery without angina pectoris
CPT/HCPCS: 80053; 80061; 85025